=== PATIENT | male | born 1950 | race Caucasian/White ===

== ENCOUNTER 2016-12-12 19:55 | Emergency (ER) | payer OTHER ==
[2016-12-12 20:07] VITALS: BP 127/81; PULSE 65; TEMP 98.4; BMI 27.8
--- NOTE | 2016-12-12 20:34 | PDOC ---
History of Present Illness - General History Source: Patient Exam Limitations: No Limitations - History of Present Illness Initial Comments: 12/12/16 20:55 The patient is a 66 year old male, with a significant past medical history of cardiomegaly, COPD, esophageal varices, colon polyps, cirrhosis, who presents to the emergency s/p mechanical fall at approximately 11:00. The patient reports he was standing on a ladder doing some cabinet work in his kitchen. Patient reports he was standing half on the ladder and half on the counter doing some cabinet work when suddenly one of the cabinets fell onto the ladder, knocked down the ladder, and the patient fell approximately 4.5 feet onto the floor. The patient reports hitting the back of his head and sustaining a laceration from the cabinet. He denies any LOC, headache, dizziness, or nausea. He reports associated soreness in his neck, mid-lower back and right knee. Patient reports using a skin adhesive for the laceration. The patient denies any other trauma. The patient is on lasix and 81 mg of aspirin daily. The patient denies any chest pain, shortness of breath, diaphoresis, or palpitations. Allergies: Codeine Past Surgical History: Right arm fracture, arthroscopy of right knee Social History: ETOH abuse(currently on Methadone) Non smoker. <Jory Smith - Last Filed: 12/12/16 20:54> <Susan Cr - Last Filed: 12/13/16 01:10> - General Chief Complaint: Injury Stated Complaint: HEAD INJURY,LACERATION TO HEAD S/P FELL OFF LADDER Time Seen by Provider: 12/12/16 19:57 Past History <Jory Smith - Last Filed: 12/12/16 20:54> - Past Medical History Anemia: No Asthma: Yes Cardiac Disorders: Yes (ENLARGED HEART) CVA: No COPD: Yes CHF: No Dementia: No Diabetes: No GI Disorders: Yes (ESOPHAGEAL VARICES) Disorders: No HTN: No Hypercholesterolemia: No Liver Disease: Yes (H/O COLON POLYPS,ALCOHOLIC CIRRHOSIS) Seizures: No Thyroid Disease: No - Surgical History Abdominal Surgery: No Appendectomy: No Cardiac Surgery: No Cholecystectomy: No Lung Surgery: No Neurologic Surgery: No Orthopedic Surgery: Yes (FX RIGHT ARM,ARTHROSCOPY RIGHT KNEE) - Immunization History Immunization Up to Date: Yes - Psycho/Social/Smoking Cessation Hx Anxiety: No Suicidal Ideation: No Smoking History: Never smoked Have you smoked in the past 12 months: No Information on smoking cessation initiated: No Hx Alcohol Use: No Drug/Substance Use Hx: No Substance Use Type: Alcohol Hx Substance Use Treatment: Yes (3 YRS AGO, currently on Methadone) <Susan Cr - Last Filed: 12/13/16 01:10> - Past Medical History Allergies/Adverse Reactions: Allergies Allergy/AdvReac Type Severity Reaction Status Date / Time codeine [Codeine] Allergy Verified 12/12/16 19:58 Home Medications: Ambulatory Orders Methadone [Dolophine -] 5 mg PO TID 12/19/13 Furosemide [Lasix -] 20 mg PO DAILY 11/25/14 Aspirin [Aspirin EC] 81 mg PO DAILY #0 12/13/14 Albuterol Sulfate Inhaler - [Ventolin Hfa Inhaler -] 1 - 2 inh PO ASDIR PRN Multivitamin [Poly-Vitamin] 1 each PO DAILY 12/12/16 Review of Systems - Review of Systems Able to Perform ROS?: Yes Comments:: 12/12/16 20:55 CONSTITUTIONAL: Absent: fever, no chills, no fatigue EYES: Absent: visual changes ENT: Absent: ear pain, no sore throat CARDIOVASCULAR: Absent: chest pain, no palpitations RESPIRATORY: Absent: cough, no SOB GI: Absent: abdominal pain, no nausea, no vomiting, no constipation, no diarrhea GENITOURINARY: Absent: dysuria, no frequency, no hematuria MUSCULOSKELETAL: Present:+soreness in his neck, mid-lower back and right knee Absent: back pain, no arthralgia, no myalgia SKIN: Present: +laceration to the head Absent: rash NEURO: Absent: headache <SmithGiomilsy - Last Filed: 12/12/16 20:54> *Physical Exam - Vital Signs Last Vital Signs Temp Pulse Resp BP Pulse Ox 98.4 F 65 18 127/81 94 L 12/12/16 19:57 12/12/16 19:57 12/12/16 19:57 12/12/16 19:57 12/12/16 19:57 - Physical Exam Comments: 12/12/16 20:55 General: Patient is alert and in no acute distress. Speech is clear and appropriate. Head: 10 cm nonbleeding partial thickness laceration of the right parietal scalp. Nontender. HEENT: Pupils are equal round and reactive to light, extraocular movements are intact. The tympanic membranes are clear, no hemotympanum. No facial deformity/ tenderness, no septal hematoma. The oropharynx is clear. Neck: Mild tenderness of the midline cervical spine C4-C6. Full range of motion of neck. The trachea is midline, there is no stridor. Chest: Nontender, no ecchymosis or abrasions. Heart: S1-S2, regular rate and rhythm. No murmurs. Lungs: Clear to auscultation bilaterally. Symmetric chest rise. Abdomen: Soft/nontender/nondistended. Bowel sounds are normal. There is no abdominal or flank ecchymosis. Back/Pelvis: Mild right flank tenderness but no midline lower spinal tenderness There is no other midline spine tenderness or step-off. Pelvis is stable and nontender. Extremities: Mild tenderness of the left knee medially, but no edema, deformity , or ecchymosis. Full nonpainful ROM in the left knee. There is no other extremity deformity or joint swelling. No focal bony tenderness throughout. 2+ distal pulses throughout. Neuro: Alert and oriented x3. Cranial nerves II through XII are intact. 5 out of 5 motor strength x4 extremities. [id number] is intact. No pronator drift. Gait is stable. Skin: No abrasions/hematomas/lacerations. Psych: Affect is appropriate. <Smith,Giomilsy - Last Filed: 12/12/16 20:54> - Vital Signs Last Vital Signs Temp Pulse Resp BP Pulse Ox 98.4 F 65 18 127/81 94 L 12/12/16 19:57 12/12/16 19:57 12/12/16 19:57 12/12/16 19:57 12/12/16 19:57 <Susan Cr - Last Filed: 12/13/16 01:10> ED Treatment Course - ADDITIONAL ORDERS Additional order review: Laboratory Results 12/12/16 20:38 Urine Color Yellow Urine Appearance Clear Urine pH 6.5 Ur Specific Loa 1.020 Urine Protein Negative Urine Glucose (UA) Negative Urine Ketones Trace Urine Blood Negative Urine Nitrite Negative Urine Bilirubin Negative Urine Urobilinogen 0.2 e.u/dl Ur Leukocyte Esterase Negative <Jory Smith - Last Filed: 12/12/16 20:54> Progress Note - Progress Note Progress Note: Documentation has been prepared under my direction and personally reviewed by me in its entirety. I attest that this documented accurately reflects all work, treatment, procedures and medical decision making performed by me. <Susan Cr - Last Filed: 12/13/16 01:10> Medical Decision Making - Medical Decision Making As noted above, this 66-year-old man with history of hepatitis C, cirrhosis, esophageal varices presents after falling in his home much earlier today while working on cabinets. As described above, the patient fell approximately 4-1/2 feet, striking his head on a linoleum floor and having a cabinet fall on his head, sustaining a superficial laceration of the scalp. There was no loss of consciousness and patient has had no symptoms throughout the day suggestive of severe closed head injury. Patient's presenting symptoms were "soreness " of right knee/right shoulder. On exam, he had some mild tenderness of the lower portion of his neck, although the patient stated that this was not severe. Shoulder and knee exam revealed no evidence of edema or point tenderness. Patient was able to weight-bear and walk today without significant disability. Noncontrast head CT/cervical spine CT was performed: Interpretation by Dr. Tapia. Noncontrast head CT revealed no evidence of acute intracranial pathology or skull fracture. 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 No evidence of acute injury of the cervical spine. Patient was asked about previous neck injuries. Although he has not had previous direct trauma to the neck, he states that for approximately 10 years he chronically lifted very heavy weights and carried them on his upper back/ shoulders. He does not have significant chronic neck pain. Patient will be discharged with follow-up with his general medical doctor as well as his orthopedist (Dr. Munoz). Because he has contraindications to both NSAIDs (because of esophageal varices) as well as acetaminophen (because of his chronic hepatic issues), neither can be recommended for pain relief. Patient understands the rationale and agrees to the plan. If his pain is severe enough that he needs pain medication, he should follow-up with his doctors as above or, if pain is very severe, return to the ER <Susan Cr - Last Filed: 12/13/16 01:10> *DC/Admit/Observation/Transfer - Attestations Scribe Attestion: 12/12/16 20:55 Documentation prepared by Jory Smith, acting as medical front desk coordinator for Susan Cr MD. <Jory Smith - Last Filed: 12/12/16 20:54> <Susan Cr - Last Filed: 12/13/16 01:10> Diagnosis at time of Disposition: Shoulder strain Qualifiers: Encounter type: initial encounter Laterality: right Qualified Code(s): S46.911A - Strain of unspecified muscle, fascia and tendon at shoulder and upper arm level, right arm, initial encounter Strain of right knee Qualifiers: Encounter type: initial encounter Qualified Code(s): S86.911A - Strain of unspecified muscle(s) and tendon(s) at lower leg level, right leg, initial encounter Superficial laceration of scalp Qualifiers: Encounter type: initial encounter Qualified Code(s): S01.01XA - Laceration without foreign body of scalp, initial encounter Closed head injury Qualifiers: Encounter type: initial encounter Qualified Code(s): S09.90XA - Unspecified injury of head, initial encounter Cervical stress fracture Qualifiers: Encounter type: initial encounter Qualified Code(s): M48.42XA - Fatigue fracture of vertebra, cervical region, initial encounter for fracture - Discharge Dispostion Disposition: HOME Condition at time of disposition: Stable - Referrals Referrals: Gabriel Munoz MD [Staff Physician] - - Patient Instructions Printed Discharge Instructions: DI for Closed Head Injury Additional Instructions: keep head elevated tonight use soft collar as needed return to ER if headache/nausea/lightheadedness develop followup with your general doctor within one week see Dr Munoz if shoulder/knee pain persists
[2016-12-12 20:47] LABS: PH,URINE 6.5 (4.5-8); URINE APPEARANCE Clear; URINE BILIRUBIN Negative (NEGATIVE); URINE BLOOD Negative (NEGATIVE); URINE GLUCOSE (UA) Negative (NEGATIVE); URINE KETONE Trace (NEGATIVE); URINE LEUK ESTERASE Negative (NEGATIVE); URINE NITRITE Negative (NEGATIVE); URINE PROTEIN Negative (NEGATIVE); URINE UROBILINOGEN 0.2 E.U/dl (0.2-1.0)
[2016-12-12 20:50] LABS: URINE COLOR YELLOW
== END 2016-12-12 22:14 | disposition home or self-care (01) ==
LOC: FER 19:55
DX: S46.911A Strain of unspecified muscle, fascia and tendon at shoulder and upper arm level, right arm, initial encounter (principal); S86.911A Strain of unspecified muscle(s) and tendon(s) at lower leg level, right leg, initial encounter; S01.01XA Laceration without foreign body of scalp, initial encounter; S09.90XA Unspecified injury of head, initial encounter; M48.42XA Fatigue fracture of vertebra, cervical region, initial encounter for fracture; W11.XXXA Fall on and from ladder, initial encounter; Y93.89 Activity, other specified; Y92.000 Kitchen of unspecified non-institutional (private) residence as the place of occurrence of the external cause; I51.7 Cardiomegaly; J45.909 Unspecified asthma, uncomplicated; J44.9 Chronic obstructive pulmonary disease, unspecified; I85.00 Esophageal varices without bleeding
CPT/HCPCS: 70450-TC; 72125-TC; 81003; 99283-25

== ENCOUNTER 2018-05-16 10:19 | Day surgery (SDC) | payer OTHER ==
[2018-05-14 17:15] VITALS: BMI 28.8
[2018-05-16] MEDS ORDERED: BUPIVACAINE HCL/PF 2.5 MG/ML - 30 ML VIAL IJ ONE (11:55)
[2018-05-16] MEDS ORDERED: LIDOCAINE HCL/PF 2% SDV 5ML VIAL ONE (12:31)
[2018-05-16] MEDS ORDERED: PROPOFOL 20 ML ONE (12:31)
[2018-05-16] MEDS ORDERED: MIDAZOLAM HCL 2 MG/2 ML SINGLE DOSE VIAL ONE (12:31)
[2018-05-16] MEDS ORDERED: ONDANSETRON 4 MG/2 ML VIAL IVPUSH PRN (12:37)
[2018-05-16] MEDS ORDERED: oxyCODONE HCL 5 MG TABLET PO PRN (12:37)
[2018-05-16] MEDS ORDERED: ceFAZolin SODIUM 1 GM VIAL ONE (12:43)
[2018-05-16] MEDS ORDERED: LACTATED RINGERS SOLUTION 1,000 ML IV SCH (12:45)
[2018-05-16] MEDS ORDERED: BUPIVACAINE HCL/PF 0.25% (2.5MG/ML) 10 ML VIAL IJ ONE (12:59)
--- NOTE | 2018-05-16 14:20 | OP ---
DATE OF OPERATION: 05/16/2018 SURGEON: Gabriel Owens MD [employer] MANAGER: JACQUE Goldstein PREOPERATIVE DIAGNOSES: 1. Left knee medial and lateral meniscal tear. 2. Left knee cartilage tear. 3. Left knee synovitis. POSTOPERATIVE DIAGNOSES: 1. Left knee medial and lateral meniscal tear. 2. Left knee cartilage tear. 3. Left knee synovitis. PROCEDURE: 1. Left knee arthroscopy with partial meniscectomy medial and lateral meniscus, CPT code 58603. 2. Left knee arthroscopy with chondroplasty and abrasion-plasty, CPT code 2979. 2. left knee arthroscopy with synovectomy including removal of medial plica, CPT code 2975. FINDINGS: 1. Medial meniscus body and posterior horn tear. 2. Lateral meniscus body tear. 3. Synovitis patellofemoral medial and lateral notch area. 4. ACL and PCL intact. 5. Diffuse grade 2 cartilage medial and femoral condyle with a small area of grade 3 changes anterior medial femoral condyle. 6. Central grade 1-2 cartilage injury lateral femoral condyle tibial plateau. 7. Central grade 2-3 cartilage in the patella with 1-2 changes patellofemoral trochlea and superior patella grade 4 changes. PROCEDURE: Informed consent was obtained. The patient came to the operating room, where the lower extremity was prepped and draped in a sterile fashion. A tourniquet was placed on the upper thigh, but not inflated. Using standard arthroscopic technique, a lateral incision and portal was made to allow for introduction of the camera into the suprapatellar bursa. This was then taken to the medial joint line, where under direct visualization, a medial incision and portal was made. Excessive synovium noted in the medial, lateral and patellofemoral and notch area was removed by an upbiter, shaver and Bovie cautery. This was found to bring in inflammatory tissue into the joint surface, a source of pain and dysfunction. Probing of the medial and lateral meniscus found tears, as described in the findings. These were removed with the upbiter and shaver and taken back to a stable rim. Grade 2 to 3 degenerative changes were treated with a chondroplasty, removing all flaking surfaces with low-setting Bovie along the periphery to prevent further flaking. Grade 4 changes, as noted, were treated with an abrasion-plasty, creating a bleeding surface at the bone/cartilage interface. Aggressive debridement with shaver/willy created bleeding surface. Micro fracture also done when indicated in findings. All areas of the knee were once again reexamined. The knee was then drained, and a single suture was placed in all portals. A sterile dressing was placed, and the patient was transferred to the recovery room without complication. The PA listed above was present and assisted at surgery. Their presence was absolutely medically necessary for the completion of the procedure. They helped hold the arthroscopy, pass instruments (and implants when indicated) and the procedure could not have been completed without their assistance. GABRIEL OWENS M.D. [id number]
[2018-05-16 14:33] VITALS: PULSE 71; TEMP 98
[2018-05-16 14:34] VITALS: BP 131/74
--- NOTE | 2018-05-20 13:37 | PATH ---
Surgical Pathology Report Patient Name: MARY WILLIAM Med. Rec. #: [id number] /Age/Gender: 1950 (Age: 67) / M Account: [id number] Location: [facility] AMBULATORY Taken: 05/16/2018 Received: 05/16/2018 Reported: 05/20/2018 Physicians: Gabriel Munoz M.D. Specimen(s) Received LEFT KNEE SHAVINGS Clinical History Left knee internal derangement Final Diagnosis KNEE, LEFT, ARTHROSCOPIC SHAVING: FIBROCARTILAGE WITH MYXOID DEGENERATIVE CHANGES. Electronically Signed Prashanth Recio M.D. Gross Description Received in formalin labeled "left knee shavings," is a 0.1 x 0.1 x 0.1 cm aggregate of pina soft tissue fragments. The specimen is submitted in toto in one cassette. 05/19/201805/19/2018
== END 2018-05-16 15:20 | disposition home or self-care (01) ==
LOC: FASU 10:19
PROVIDERS: ATTEND Orthopaedic Surgery
PROC: 0SBD4ZZ Excision of Left Knee Joint, Percutaneous Endoscopic Approach (ICD-10-PCS; 2018-05-16)
PROC: 0SBD4ZZ Excision of Left Knee Joint, Percutaneous Endoscopic Approach (ICD-10-PCS; 2018-05-16)
PROC: 0SBD4ZZ Excision of Left Knee Joint, Percutaneous Endoscopic Approach (ICD-10-PCS; principal; 2018-05-16 11:30)
DX: S83.242A Other tear of medial meniscus, current injury, left knee, initial encounter (principal); S83.282A Other tear of lateral meniscus, current injury, left knee, initial encounter; S83.8X2A Sprain of other specified parts of left knee, initial encounter; M65.862 Other synovitis and tenosynovitis, left lower leg; X58.XXXA Exposure to other specified factors, initial encounter; Y93.9 Activity, unspecified; Y92.9 Unspecified place or not applicable
CPT/HCPCS: 88304-TC; 94760

== ENCOUNTER 2018-08-23 17:33 | Inpatient (IN) | payer OTHER ==
--- NOTE | 2018-08-23 18:51 | PDOC ---
Attending Attestation - Resident Resident Name: Shivani Padron - ED Attending Attestation I have performed the following: I have examined & evaluated the patient, The case was reviewed & discussed with the resident, I agree w/resident's findings & plan, Exceptions are as noted - HPI HPI: 08/23/18 18:45 68myo male h/o copd,( asbestos exposure, never tobacco user) hep c ( treated viral load undetectable), h/o esophageal varices, here c/o sob. pt states he had a fall slipped on ice 2 weeks ago. was seen at another hospital and evaluated with cxr which was reportedly negative. then 3 days ago started having nausea, with vomiting, anorexia. and sob. pt states sob worse wtih exertion. no cough, no abd pain. no weightloss. no known ho cancer other than localized melanoma which was resected from nose many years ago. no h/o travel. no ho pe or dvt, no recent calf pain or leg swelling. no other complaints. states after his fall initially he did have clicking noise when breathing on left chest. now denies pleuritic pain. - Physicial Exam PE: 08/23/18 18:48 awake alert mild labored breathing on room air, sat 84%, lungs with crackles at bilat bases, heart rrr no mrg abd soft nt nd. ext wwp no edema. no calf tenderness. skin warm and dry. alert oriented x 3. - Medical Decision Making 08/23/18 18:48 68 yo male h/o asbestos exposure, copd, interstitial lung disease, ( no home Oxygen) and treated hep c, recent benign trauma with sob hypoxia. crackles on exam. differential includes chf, pna, ptx, rib fracture, effusion, lung ca, pe, copd. plan focused lung TTE us performed at bedside. patient placed on oxygen, sats improved to 95 % on 5 L. focused ED TTE, mild decr contatractility, no pericardial effusion. no rv enlargment or dilation, impression: mild decr contractility otherwise unremarkable. bilat lungs scanned with phased array and linear transducer, bilat lung sliding noted. anterior lung ngo with scattered b lines, no pleural effusion noted. impression: interstitial lung syndrome, ( edema. vs pna, no ptx, no pleural effusion. plan cxr, david cta r/o pe, labs and admission. pt pcp dr perales. 08/23/18 19:00 signed out to oncoming physician labs pending. cxr with bilat infiltrates. c/w pneumonia. abx ceftriaxone and azithromycin ordered. ct pending will require admission.
[2018-08-23 19:33] LABS: HEMOGLOBIN 12.6 GM/dl (11.7-16.9); MCH 29.9 pg (25.7-33.7); MCHC 33.1 g/dl (32.0-35.9); MEAN CELL VOLUME 90.4 fl (80-96); MEAN PLT VOLUME 7.8 fl (7.5-11.1); PLATELET COUNT 140 K/MM3 (134-434); RDW 11.9 % (11.9-15.9); WHITE BLOOD COUNT 10.8 K/mm3 (4.0-10.8)
--- NOTE | 2018-08-23 19:36 | PDOC ---
History of Present Illness - General Chief Complaint: Shortness of Breath Stated Complaint: SOB Time Seen by Provider: 08/23/18 18:22 History Source: Patient Exam Limitations: No Limitations - History of Present Illness Initial Comments: 08/23/18 19:28 Pt is a 68yo M with PMH of HepC (treated), COPD, Melanoma (excised), Phlebitis, presenting to ED for increasing SOB for the past 3 days. Pt states he feels short of breath with exertion. He stated that the night before the SOB began he vomited twice but since then is not having any GI symptoms. He denies cough, fever, chills, chest pain, pain with inspiration, recent surgeries, recent travel, hemoptysis, swelling or pain in the calves, syncope, palpitations, abdominal pain, n/v/d, back pain, neck pain. Endorses headache. He states that about 2 weeks ago he fell on ice and injured the L side of his chest, the xrays however were normal. PMD: Nagasi PMH: see hpi PSH: see hpi Meds: HCTZ Allergies: nkda Social: no tobacco use. Past History - Past Medical History Allergies/Adverse Reactions: Allergies Allergy/AdvReac Type Severity Reaction Status Date / Time No Known Allergies Allergy Verified 05/16/18 10:49 Home Medications: Ambulatory Orders Furosemide [Lasix -] 20 mg PO DAILY 11/25/14 Aspirin [Aspirin EC] 81 mg PO DAILY #0 12/13/14 Albuterol Sulfate Inhaler - [Ventolin Hfa Inhaler -] 1 - 2 inh PO ASDIR PRN Ascorbic Acid [Vitamin C] 500 mg PO DAILY 05/14/18 Turmeric 400 mg PO DAILY 05/14/18 Vitamin B Complex 1 each PO DAILY 05/14/18 Vitamin E 400 unit PO DAILY 05/14/18 Anemia: No Asthma: Yes Cancer: Yes (skin CA-nose) Cardiac Disorders: No CVA: No COPD: Yes CHF: No Dementia: No Diabetes: No GI Disorders: Yes (ESOPHAGEAL VARICES) Disorders: No HTN: No Hypercholesterolemia: No Liver Disease: Yes (H/O COLON POLYPS,ALCOHOLIC CIRRHOSIS) Seizures: No Thyroid Disease: No - Surgical History Abdominal Surgery: No Appendectomy: No Cardiac Surgery: No Cholecystectomy: No Lung Surgery: No Neurologic Surgery: No Orthopedic Surgery: Yes (FX RIGHT ARM,ARTHROSCOPY RIGHT KNEE) - Immunization History Immunization Up to Date: Yes - Suicide/Smoking/Psychosocial Hx Smoking History: Never smoked Have you smoked in the past 12 months: No Information on smoking cessation initiated: No Hx Alcohol Use: Yes Drug/Substance Use Hx: Yes Substance Use Type: None Hx Substance Use Treatment: Yes (HX OF ALCOHOL ABUSE) Review of Systems - Review of Systems Constitutional: Yes: Weakness. No: Chills, Fever HEENTM: No: Symptoms Reported Respiratory: Yes: Shortness of Breath, SOB with Exertion. No: SOB at Rest, Productive cough, Hemoptysis Cardiac (ROS): No: Chest Pain, Edema, Lightheadedness, Palpitations, Syncope, Chest Tightness ABD/GI: No: Constipated, Diarrhea, Nausea, Vomiting, Abdominal cramping : No: Burning, Dysuria, Flank Pain Musculoskeletal: No: Back Pain, Joint Pain, Neck Pain Integumentary: No: Symptoms Reported Neurological: Yes: Headache. No: Numbness, Tingling, Tremors, Weakness *Physical Exam - Vital Signs Last Vital Signs Temp Pulse Resp BP Pulse Ox 98.1 F 78 20 127/64 95 08/23/18 17:34 08/23/18 17:34 08/23/18 17:45 08/23/18 17:34 08/23/18 17:45 - Physical Exam General Appearance: Yes: Nourished, Appropriately Dressed, Moderate Distress HEENT: positive: EOMI, STACEY. negative: Pale Conjunctivae, Scleral Icterus (R), Scleral Icterus (L) Neck: positive: Trachea midline, Supple. negative: Lymphadenopathy (R), Lymphadenopathy (L) Respiratory/Chest: positive: Crackles (R>L lower lung field). negative: Chest Tender, Normal Breath Sounds (coarse breath sounds), Accessory Muscle Use, Labored Respiration Cardiovascular: positive: Regular Rhythm, Regular Rate, S1, S2. negative: Edema , JVD, Murmur Vascular Pulses: Carotid (R): 2+, Carotid (L): 2+, Dorsalis-Pedis (R): 2+, Doralis-Pedis (L): 2+ Gastrointestinal/Abdominal: positive: Normal Bowel Sounds, Soft. negative: Distended, Guarding, Rebound, Tenderness Musculoskeletal: negative: CVA Tenderness Extremity: positive: Normal Capillary Refill, Pelvis Stable. negative: Pedal Edema, Swelling, Calf Tenderness Integumentary: positive: Normal Color, Dry, Warm Neurologic: positive: graduate nurse II-XII NML intact, Fully Oriented, Alert, Normal Mood/ Affect, Normal Response, Motor Strength 5/5 Moderate Sedation - Procedure Monitoring Vital Signs: Procedure Monitoring Vital Signs Temperature 98.1 F 08/23/18 17:34 Pulse Rate 78 08/23/18 17:34 Respiratory Rate 20 08/23/18 17:45 Blood Pressure 127/64 08/23/18 17:34 O2 Sat by Pulse Oximetry (%) 95 08/23/18 17:45 ED Treatment Course - LABORATORY CBC & Chemistry Diagram: 08/23/18 19:10 08/23/18 19:10 - ADDITIONAL ORDERS Additional order review: Laboratory Results 08/23/18 19:10 Anticoagulation Therapy No Result Required. O2 Delivery Device No Result Required. Oxygen Flow Rate No Result Required. Vent Mode No Result Required. Vent Rate No Result Required. Mechanical Rate No Result Required. Pressure Support Vent No Result Required. - RADIOLOGY Radiology Studies Ordered: Category Date Time Status CHEST CTA [CT] Stat CT Scan 08/23/18 18:12 Ordered CHEST PA & LAT [RAD] Stat Radiology 08/23/18 18:11 Taken Medical Decision Making - Medical Decision Making 08/23/18 19:33 Pt is a 68yo M with PMH of HepC (treated), COPD, Melanoma (excised), Phlebitis, presenting to ED for increasing SOB for the past 3 days. Pt states he feels short of breath with exertion. He stated that the night before the SOB began he vomited twice but since then is not having any GI symptoms. He denies cough, fever, chills, chest pain, pain with inspiration, recent surgeries, recent travel, hemoptysis, swelling or pain in the calves, syncope, palpitations, abdominal pain, n/v/d, back pain, neck pain. Endorses headache. He states that about 2 weeks ago he fell on ice and injured the L side of his chest, the xrays however were normal. Vitals: saturating 80%RA, increased to low 90s on 5L NC, normotensive, normocardic, afebrile PE: crackles/coarse lung sounds at base, normal heart sounds, no edema, no rashes, no chest wall tenderness Ddx: PE, PNA, CHF, COPD, PTX, Effusion, vascular abnormality. Atelectasis -cbc, cmp, trop, bnp, coags, ua, ABG -ekg, cxr, CTA, POCUS POCUS: no pericardial effusion or lung effusion, B-lines. Normal cardiac function Pt was a difficult stick. Line just placed. CXR shows diffuse infiltrates or congestion in R lung field. Pt signed out to night team *DC/Admit/Observation/Transfer Diagnosis at time of Disposition: SOB (shortness of breath), Hypoxia - Referrals Referrals: Sana Hurd MD [Primary Care Provider] - - Patient Instructions - Post Discharge Activity
[2018-08-23 19:40] LABS: ALBUMIN 3.1 g/dl (3.4-5.0); ALK PHOS 75 U/L (45-117); ANION GAP 8 MMOL/L (8-16); BILIRUBIN,TOTAL 1.1 mg/dl (0.2-1); BLOOD UREA NITROGEN 12 mg/dl (7-18); CALCIUM 7.8 mg/dl (8.5-10); CHLORIDE 93 mmol/L (98-107); CO2 30 mmol/L (21-32); CREATININE 0.7 mg/dl (0.55-1.3); GLUCOSE,RANDOM 103 mg/dl (74-106); MAGNESIUM 1.7 mg/dL (1.8-2.4); SGOT/AST 33 U/L (15-37); SGPT/ALT 27 U/L (13-61); SODIUM 131 mmol/L (136-145); TOT PROT 6.4 g/dl (6.4-8.2)
--- NOTE | 2018-08-23 19:44 | PDOC ---
*Physical Exam - Vital Signs Last Vital Signs Temp Pulse Resp BP Pulse Ox 98.1 F 71 20 127/64 95 08/23/18 17:34 08/23/18 19:30 08/23/18 17:45 08/23/18 17:34 08/23/18 19:38 ED Treatment Course - LABORATORY CBC & Chemistry Diagram: 08/23/18 19:10 08/23/18 19:10 - ADDITIONAL ORDERS Additional order review: Laboratory Results 08/23/18 19:10 Anticoagulation Therapy No Result Required. O2 Delivery Device No Result Required. Oxygen Flow Rate No Result Required. Vent Mode No Result Required. Vent Rate No Result Required. Mechanical Rate No Result Required. Pressure Support Vent No Result Required. 08/23/18 19:10 RBC 4.20 MCV 90.4 MCHC 33.1 RDW 11.9 MPV 7.8 Neutrophils % No Result Required. Lymphocytes % No Result Required. Progress Note - Progress Note Progress Note: Care of this patient was transferred to [place] from Dr. Cannon at 1900 hrs. Patient is a 68-year-old male who comes in with difficulty breathing and oxygen sat is mid-80s. On chest x-ray patient has a large right-sided infiltrate and a smaller left- sided infiltrate Patient has a workup pending including labs, CT angios of the chest, His EKG shows normal sinus rhythm at a rate of [address]-T wave inversions laterally, otherwise no acute changes Once patient's workup is complete he will be admitted to an inpatient bed Patient's CT angios was negative for pulmonary embolism Discussed admission with , Patient will admitted to an inpatient bed telemetry . Signout given to the admitting hospitalist, who accepts the patient. Discussed plan with the patient family at bedside, Patient and family aware of the plan and agree. Patient is clinically unchanged and stable. *DC/Admit/Observation/Transfer Diagnosis at time of Disposition: SOB (shortness of breath), Hypoxia Bilateral pneumonia Qualifiers: Pneumonia type: due to unspecified organism Lung location: lower lobe of lung Qualified Code(s): J18.1 - Lobar pneumonia, unspecified organism - Discharge Dispostion Decision to Admit order: Yes - Referrals Referrals: Sana Hurd MD [Primary Care Provider] - - Patient Instructions - Post Discharge Activity
[2018-08-23 19:45] LABS: POTASSIUM 2.9 mmol/L (3.5-5.1)
[2018-08-23] MEDS ORDERED: POTASSIUM CHLORIDE TABS 20 MEQ TABLET.ER (FP) PO ONE ×2 (19:55)
[2018-08-23 20:00] LABS: INR 1.47 (0.82-1.09); PROTHROMBIN TIME (PATIENT) 16.3 SEC (10.2-13.0)
[2018-08-23 20:15] LABS: URINE APPEARANCE Clear; URINE BILIRUBIN Negative (NEGATIVE); URINE COLOR Yellow; URINE GLUCOSE (UA) Negative (NEGATIVE); URINE KETONE Negative (NEGATIVE); URINE LEUK ESTERASE Negative (NEGATIVE); URINE NITRITE Negative (NEGATIVE); URINE PROTEIN Negative (NEGATIVE)
[2018-08-23 20:37] LABS: URINE RBC 0-2 /hpf (0-3); URINE WBC 0-2 (0-2)
[2018-08-23 20:37] LABS: ARTERIAL BLD GAS O2 SATURATION 92.8 % (90-98.9); ARTERIAL BLOOD GAS BASE EXCESS 6.9 meq/l (-2-2); ARTERIAL BLOOD GAS PCO2 48.7 mmHg (35-45); ARTERIAL BLOOD GAS PO2 68.5 mmHg (80-100); ARTERIAL BLOOD GAS pH 7.44 (7.35-7.45); CARBOXYHEMOGLOBIN 1.3 gm% (0.5-2.0); PLATELET ESTIMATE ADEQUATE
[2018-08-23] MEDS ORDERED: CEFTRIAXONE 1,000 MG in DEXTROSE 5%-WATER - 50 ML IVPB ONE (20:39)
[2018-08-23] MEDS ORDERED: AZITHROMYCIN IVPB 500 MG in DEXTROSE 5%-WATER - 250 ML IVPB ONE (20:40)
[2018-08-23] MEDS ORDERED: cefTRIAXone SODIUM 1 GM VIAL ONE (20:54)
[2018-08-23] MEDS ORDERED: AZITHROMYCIN 500 MG VIAL IVPB ONE (20:54)
[2018-08-23 21:04] LABS: N-TERMINAL BNP 2766.8 pg/ml (5-125)
[2018-08-23] MEDS ORDERED: ALBUTEROL SO4 0.083% IH SOL 2.5 MG/3 ML VIAL.NEB. NEB PRN (22:03)
--- NOTE | 2018-08-23 22:04 | HP ---
CHIEF COMPLAINT: shortness of breath PCP: Patricia HISTORY OF PRESENT ILLNESS: 68yo M with PMH of HepC (treated), COPD, Melanoma (excised), Phlebitis, c/o shortness of breath since sat. Denied any cough or chest pain. No recent travels. No animal exposures. 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 Heterosexual, no recent infections that he can recall. Not exposed to anyone sick recently. 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 use was 15 years ago Family History: mother with colon cancer Allergies No Known Allergies Allergy (Verified 05/16/18 10:49) HOME MEDICATIONS: Home Medications Medication Instructions Recorded Furosemide [Lasix -] 20 mg PO DAILY 11/25/14 Aspirin [Aspirin EC] 81 mg PO DAILY #0 12/13/14 Albuterol Sulfate Inhaler - 1 - 2 inh PO ASDIR PRN 12/12/16 [Ventolin Hfa Inhaler -] Ascorbic Acid [Vitamin C] 500 mg PO DAILY 05/14/18 Turmeric 400 mg PO DAILY 05/14/18 Vitamin B Complex 1 each PO DAILY 05/14/18 Vitamin E 400 unit PO DAILY 05/14/18 REVIEW OF SYSTEMS CONSTITUTIONAL: Absent: fever, chills, diaphoresis, generalized weakness, malaise, loss of appetite, weight change HEENT: Absent: rhinorrhea, nasal congestion, throat pain, throat swelling, difficulty swallowing, mouth swelling, ear pain, eye pain, visual changes CARDIOVASCULAR: Absent: chest pain, syncope, palpitations, irregular heart rate, lightheadedness , peripheral edema RESPIRATORY: Absent: cough,, orthopnea, wheezing, stridor, hemoptysis present- shortness of breath, dyspnea with exertion GASTROINTESTINAL: Absent: abdominal pain, abdominal distension, nausea, vomiting, diarrhea, constipation, melena, hematochezia GENITOURINARY: Absent: dysuria, frequency, urgency, hesitancy, hematuria, flank pain, genital pain MUSCULOSKELETAL: Absent: myalgia, arthralgia, joint swelling, back pain, neck pain SKIN: Absent: rash, itching, pallor HEMATOLOGIC/IMMUNOLOGIC: Absent: easy bleeding, easy bruising, lymphadenopathy, frequent infections ENDOCRINE: Absent: unexplained weight gain, unexplained weight loss, heat intolerance, cold intolerance NEUROLOGIC: Absent: headache, focal weakness or paresthesias, dizziness, unsteady gait, seizure, mental status changes, bladder or bowel incontinence PSYCHIATRIC: Absent: anxiety, depression, suicidal or homicidal ideation, hallucinations. PHYSICAL EXAMINATION Vital Signs - 24 hr 08/23/18 08/23/18 08/23/18 17:34 17:45 19:30 Temperature 98.1 F Pulse Rate 72 71 Respiratory 24 H 20 Rate Blood Pressure 127/64 O2 Sat by Pulse 94 L 95 94 L Oximetry (%) 08/23/18 08/23/18 19:38 21:22 Temperature Pulse Rate 65 Respiratory Rate Blood Pressure O2 Sat by Pulse 95 95 Oximetry (%) GENERAL: Awake, alert, and fully oriented, in no acute distress. HEAD: Normal with no signs of trauma. EYES: Pupils equal, round and reactive to light, extraocular movements intact, sclera anicteric, conjunctiva clear. No lid lag. EARS, NOSE, THROAT: Ears normal, nares patent, oropharynx clear without exudates. Moist mucous membranes. NECK: Normal range of motion, supple without lymphadenopathy, JVD, or masses. LUNGS: b/l crackles appreciated, speaks in full sentences HEART: Regular rate and rhythm, normal S1 and S2 without murmur, rub or gallop. ABDOMEN: Soft, nontender, not distended, normoactive bowel sounds, no guarding, no rebound, no masses. No hepatomegaly or splenomegaly. MUSCULOSKELETAL: Normal range of motion at all joints. No bony deformities or tenderness. No CVA tenderness. UPPER EXTREMITIES: 2+ pulses, warm, well-perfused. No cyanosis. No clubbing. No peripheral edema. LOWER EXTREMITIES: 2+ pulses, warm, well-perfused. No c residential tenderness. No peripheral edema. NEUROLOGICAL: Cranial nerves II-XII intact. Normal speech. Normal gait. PSYCHIATRIC: Cooperative. Good eye contact. Appropriate mood and affect. SKIN: tattoos present, no rashes Laboratory Results - last 24 hr 08/23/18 08/23/18 08/23/18 19:10 19:10 19:10 WBC 10.8 RBC 4.20 Hgb 12.6 Hct 38.0 MCV 90.4 MCH 29.9 MCHC 33.1 RDW 11.9 Plt Count 140 MPV 7.8 Absolute Neuts (auto) 10.2 Neutrophils % No Result Required. Neutrophils % (Manual) 94.0 H* Band Neutrophils % 4.0 Lymphocytes % No Result Required. Lymphocytes % (Manual) 2.0 L Platelet Estimate Adequate PT with INR 16.3 H INR 1.47 H PTT (Actin FS) 26.6 Anticoagulation Therapy Puncture Site ABG pH ABG pCO2 at Pt Temp ABG pO2 at Pt Temp ABG HCO3 ABG O2 Sat (Measured) ABG O2 Content ABG Base Excess Anatoliy Test Carboxyhemoglobin Methemoglobin O2 Delivery Device Oxygen Flow Rate Vent Mode Vent Rate Mechanical Rate Pressure Support Vent Sodium Potassium Chloride Carbon Dioxide Anion Gap BUN Creatinine Creat Clearance w eGFR Random Glucose Lactic Acid Calcium Magnesium Total Bilirubin AST ALT Alkaline Phosphatase Troponin I B-Natriuretic Peptide Total Protein Albumin Urine Color Urine Appearance Urine pH Ur Specific [place] Urine Protein Urine Glucose (UA) Urine Ketones Urine Blood Urine Nitrite Urine Bilirubin Urine Urobilinogen Ur Leukocyte Esterase Urine RBC Urine WBC 08/23/18 08/23/18 08/23/18 19:10 19:10 19:10 WBC RBC Hgb Hct MCV MCH MCHC RDW Plt Count MPV Absolute Neuts (auto) Neutrophils % Neutrophils % (Manual) Band Neutrophils % Lymphocytes % Lymphocytes % (Manual) Platelet Estimate PT with INR INR PTT (Actin FS) Anticoagulation Therapy No Result Required. Puncture Site No Result Required. ABG pH 7.44 ABG pCO2 at Pt Temp 48.7 H ABG pO2 at Pt Temp 68.5 L ABG HCO3 32.5 H ABG O2 Sat (Measured) 92.8 ABG O2 Content 26.3 H ABG Base Excess 6.9 H Anatoliy Test No Result Required. Carboxyhemoglobin 1.3 Methemoglobin 1.0 O2 Delivery Device No Result Required. Oxygen Flow Rate No Result Required. Vent Mode No Result Required. Vent Rate No Result Required. Mechanical Rate No Result Required. Pressure Support Vent No Result Required. Sodium 131 L Potassium 2.9 L* Chloride 93 L Carbon Dioxide 30 Anion Gap 8 BUN 12 Creatinine 0.7 Creat Clearance w eGFR > 60 Random Glucose 103 Lactic Acid Calcium 7.8 L Magnesium 1.7 L Total Bilirubin 1.1 H AST 33 ALT 27 Alkaline Phosphatase 75 Troponin I < 0.03 B-Natriuretic Peptide 2766.8 H Total Protein 6.4 Albumin 3.1 L Urine Color Urine Appearance Urine pH Ur Specific [place] Urine Protein Urine Glucose (UA) Urine Ketones Urine Blood Urine Nitrite Urine Bilirubin Urine Urobilinogen Ur Leukocyte Esterase Urine RBC Urine WBC 08/23/18 08/23/18 19:10 20:00 WBC RBC Hgb Hct MCV MCH MCHC RDW Plt Count MPV Absolute Neuts (auto) Neutrophils % Neutrophils % (Manual) Band Neutrophils % Lymphocytes % Lymphocytes % (Manual) Platelet Estimate PT with INR INR PTT (Actin FS) Anticoagulation Therapy Puncture Site ABG pH ABG pCO2 at Pt Temp ABG pO2 at Pt Temp ABG HCO3 ABG O2 Sat (Measured) ABG O2 Content ABG Base Excess Anatoliy Test Carboxyhemoglobin Methemoglobin O2 Delivery Device Oxygen Flow Rate Vent Mode Vent Rate Mechanical Rate Pressure Support Vent Sodium Potassium Chloride Carbon Dioxide Anion Gap BUN Creatinine Creat Clearance w eGFR Random Glucose Lactic Acid 1.3 Calcium Magnesium Total Bilirubin AST ALT Alkaline Phosphatase Troponin I B-Natriuretic Peptide Total Protein Albumin Urine Color Yellow Urine Appearance Clear Urine pH 7.0 Ur Specific [place] 1.010 Urine Protein Negative Urine Glucose (UA) Negative Urine Ketones Negative Urine Blood Trace-intact H Urine Nitrite Negative Urine Bilirubin Negative Urine Urobilinogen 1.0 Ur Leukocyte Esterase Negative Urine RBC 0-2 Urine WBC 0-2 CTA reviewed- b/l glass glass changes ekg showed prolonged qtc ASSESSMENT/PLAN: Atypical pneumonia- b/l ground glass changes on lung imaging, environmental exposure from work? Should r/o HIV. r/o mycoplasma, chlamydia, legionella pna. Hypoxemic respiratory failure requiring supplemental o2. -admit to telemetry -ceftriaxone 1g iv q24hrs -doxycycline 100mg iv q12hrs - long qtc -sputum culture -blood cultures -legionella urine ag -mycoplasma ag -chlamydia ag -PJP stputum dfa -HIV serology -pulm consult - Dr. Garcia- Bronchoscopy? -oxygen via venturi mask -monitor 02 sat -bed rest #COPD -albuterol neb prn #DVT ppx -heparin sc Visit type - Emergency Visit Emergency Visit: Yes ED Registration Date: 08/23/18 Care time: The patient presented to the Emergency Department on the above date and was hospitalized for further evaluation of their emergent condition. - New Patient This patient is new to me today: Yes Date on this admission: 08/23/18 - Critical Care Critical Care patient: No
[2018-08-23] MEDS: HEPARIN NA (PORCINE) 5,000 UNITS/ML 1ML VIAL SQ SCH (23:21)
[2018-08-23 23:51] VITALS: BMI 28.4
--- NOTE | 2018-08-24 08:42 | PN ---
Progress Note (short form) - Note Progress Note: This is a 68yo M with PMH of HepC (treated), COPD, Melanoma (excised), Phlebitis , c/o shortness of breath since sat. Denied any cough or chest pain. No recent travels. No animal exposures. 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 Admitted with acute hypoxemic respiratory failure, poss due to pneumonia, official chest X'ray and CTA report pending. ABG reviewed ,on VM o2 sat 93-94%, as per pulmonary Dr. Garcia will transfer to [facility] for further management. Visit type - Emergency Visit Emergency Visit: Yes ED Registration Date: 08/23/18 Care time: The patient presented to the Emergency Department on the above date and was hospitalized for further evaluation of their emergent condition. - New Patient This patient is new to me today: Yes Date on this admission: 08/24/18 - Critical Care Critical Care patient: No
[2018-08-24] MEDS: HEPARIN NA (PORCINE) 5,000 UNITS/ML 1ML VIAL SQ SCH ×2 (09:11→22:02)
[2018-08-24 09:24] LABS: BASO % 0.2 % (0-2.0); EOS % 0.8 % (0-4.5); HEMATOCRIT 36.6 % (35.4-49); HEMOGLOBIN 12.3 GM/dl (11.7-16.9); LYMPH % 7.1 % (8-40); MCH 30.6 pg (25.7-33.7); MCHC 33.6 g/dl (32.0-35.9); MEAN CELL VOLUME 91.2 fl (80-96); MEAN PLT VOLUME 8.5 fl (7.5-11.1); MONO % 2.8 % (3.8-10.2); NEUT % 89.1 % (42.8-82.8); PLATELET COUNT 121 K/MM3 (134-434); RBC 4.02 M/mm3 (4.00-5.60); RDW 12.3 % (11.9-15.9); WHITE BLOOD COUNT 7.6 K/mm3 (4.0-10.8)
--- NOTE | 2018-08-24 09:47 | PN ---
Progress Note (short form) - Note Progress Note: PULMONARY CONSULTATION DICTATED 08/24/18 IMP ACUTE HYPOXEMIC RESPIRATORY FAILURE EXTENSIVE BILATERAL INFILTRATES LIKELY INFECTIOUS,? VIRAL,?INFLAMMATORY H/O ASBESTOS EXPOSURE PLAN IV ABX STEROIDS INHALED BRONCHODILATORS TAMIFLU SUPPLEMENTAL O2 NIPPV IF PT DEVELOPES INCREASED RESPIRATORY DISTRESS CULTURES ' ECHO F/U CHEST X-RAYS INFLUENZA SCREEN F/U ABGS DR CALDERA Problem List - Problems (1) Acute hypoxemic respiratory failure Code(s): J96.01 - ACUTE RESPIRATORY FAILURE WITH HYPOXIA (2) Bilateral pneumonia Code(s): J18.9 - PNEUMONIA, UNSPECIFIED ORGANISM Qualifiers: Pneumonia type: due to unspecified organism Lung location: unspecified part of lung Qualified Code(s): J18.9 - Pneumonia, unspecified organism (3) Hypoxia Code(s): R09.02 - HYPOXEMIA (4) SOB (shortness of breath) Code(s): R06.02 - SHORTNESS OF BREATH
[2018-08-24 09:49] LABS: ANION GAP 10 MMOL/L (8-16); BLOOD UREA NITROGEN 10 mg/dl (7-18); CHLORIDE 93 mmol/L (98-107); CO2 31 mmol/L (21-32); CREATININE 0.7 mg/dl (0.55-1.3); GLUCOSE,RANDOM 56 mg/dl (74-106); POTASSIUM 3.3 mmol/L (3.5-5.1); SODIUM 134 mmol/L (136-145)
[2018-08-24] MEDS ORDERED: DOXYCYCLINE HYCLATE 100 MG CAPSULE PO SCH ×2 (10:00→18:00)
[2018-08-24] MEDS ORDERED: AZITHROMYCIN IVPB 500 MG/250 ML BAG IVPB SCH (10:00)
[2018-08-24] MEDS ORDERED: FUROSEMIDE 20 MG TABLET (FP) PO SCH (10:00)
[2018-08-24] MEDS ORDERED: CEFTRIAXONE 1 GM in DEXTROSE 5%-WATER - 50 ML IVPB SCH (10:00)
[2018-08-24] MEDS ORDERED: ASCORBIC ACID 500 MG TABLET (FP) PO SCH (10:00)
[2018-08-24] MEDS ORDERED: ASPIRIN COATED 81 MG TABLET.EC PO SCH (10:00)
--- NOTE | 2018-08-24 10:54 | CONS ---
DATE OF CONSULTATION: 08/24/2018 REFERRING PHYSICIAN: HISTORY OF PRESENT ILLNESS: The patient is a 68-year-old white male with a past medical history of hepatitis C treated, melanoma status post excision localized, history of phlebitis, nonsmoker, asbestos exposure, admitted to [facility] with shortness of breath. Patient states he was doing well until approximately Saturday prior to this admission when he started developing generalized weakness, nausea and vomiting. Nausea and vomiting lasted until and started to improve. On Saturday he started to notice increasing shortness of breath and just progressive weakness. He did not seek medical attention. On Saturday his shortness of breath became significantly worse in which he could only ambulate a few feet without getting markedly dyspneic at which time he presented to the emergency room. In the ER he was noted to have bilateral infiltrates on chest x-ray. CT scan of the chest was performed which revealed extensive bilateral alveolar interstitial ground-glass infiltrates. He was started on antibiotic therapy. He denies any fevers. He does have some chills. Denies hemoptysis. Denies any chest pains or palpitations. He denies any history of COPD or asthma in the past. He states that normally he ambulates well without any shortness of breath. He denies any recent travel and there are no recent ill contacts at home. PAST MEDICAL HISTORY: Again includes asbestos exposure, history of hepatitis C, history of substance abuse, last used approximately 15 years ago, history of localized melanoma excised on the nose with no recurrence. REVIEW OF SYSTEMS: Positive dyspnea. Positive orthopnea. Positive nonproductive cough. Had no fever, no chills, no hemoptysis. No abdominal pain. Positive recent nausea and vomiting. No lower extremity edema. CURRENT MEDICATIONS: Include: 1. Solu-Medrol. 2. Ceftriaxone. 3. Vibramycin. 4. Heparin. 5. Albuterol. 6. Lasix. 7. Ecotrin. 8. Vitamin C. PHYSICAL EXAMINATION: General: The patient is a well-developed, well-nourished male awake, alert, dyspneic and tachypneic on 50% oxygen. Vital Signs: Blood pressure is 135/63. Respiratory rate is 18. O2 saturation is 94% on 4 L. His O2 saturation is 80% on room air, and he is afebrile. HEENT: Normocephalic, atraumatic. Neck: Supple. Heart: Tachycardic, S1, S2. Chest: Bilateral crackles throughout. Abdomen: Soft. Bowel sounds are positive. Extremities: No cyanosis or edema. LABORATORIES: WBC is 7.6, hemoglobin 12.3, hematocrit 36.6 with a platelet count of 121,000; 89 polys, 7 lymphs and 2 monos. INR is 1.47. Blood gas on unknown quantity of oxygen pH 7.44, pCO2 of 48, a pO2 of 68, bicarbonate of 32 and a saturation of 92.8. Chemistries: Sodium 134, BUN 10, creatinine 0.7. BNP is 2766. Chest CT : Extensive bilateral ground-glass infiltrates. IMPRESSION: 1. Acute hypoxemic respiratory failure with extensive bilateral ground-glass alveolar infiltrates most likely secondary to infectious, rule out possible viral, rule out possible influenza; cannot exclude possible inflammatory 2. History of asbestos exposure. 3. History of melanoma. PLAN: Broad-spectrum antibiotics, iv steroids , supplemental O2,Nippv as needed for increased respiratory distress ,telemetry and monitoring, followup arterial blood gases. Obtain influenza screen. Start Tamiflu. Will also obtain echocardiogram. Follow up chest x-rays. CELI CALDERA M.D. [id number] MTDD
--- NOTE | 2018-08-24 10:55 | PN ---
Physical Exam: SUBJECTIVE: Patient seen and examined, pt reports sob improved,denies cough,cp, palpitations, fever, chills, abdominal pain, N/V/D or urinary symptoms. OBJECTIVE: Vital Signs Period Temp Pulse Resp BP Sys/Carbajal Pulse Ox Last 24 Hr 98.1 F-99.1 F 64-78 17-24 119-135/61-64 82-95 GENERAL: The patient is awake, alert, and fully oriented, in no acute distress. HEAD: Normal with no signs of trauma. EYES: PERRL, extraocular movements intact, sclera anicteric, conjunctiva clear. No ptosis. ENT: Ears normal, nares patent, oropharynx clear without exudates, moist mucous membranes. NECK: Trachea midline, full range of motion, supple. LUNGS: BS diminished, no wheezes,positive crackles, no accessory muscle use. HEART: Regular rate and rhythm, S1, S2 without murmur, rub or gallop. ABDOMEN: Soft, non-tender, nondistended, normoactive bowel sounds, no guarding, no rebound, no hepatosplenomegaly, no masses. EXTREMITIES: 2+ pulses, warm, well-perfused, no edema. NEUROLOGICAL: Cranial nerves II through XII grossly intact. Normal speech, gait not observed. PSYCH: Normal mood, normal affect. SKIN: Warm, dry, normal turgor, no rashes or lesions noted Laboratory Results - last 24 hr 08/23/18 08/23/18 08/23/18 19:10 19:10 19:10 WBC 10.8 RBC 4.20 Hgb 12.6 Hct 38.0 MCV 90.4 MCH 29.9 MCHC 33.1 RDW 11.9 Plt Count 140 MPV 7.8 Absolute Neuts (auto) 10.2 Neutrophils % No Result Required. Neutrophils % (Manual) 94.0 H* Band Neutrophils % 4.0 Lymphocytes % No Result Required. Lymphocytes % (Manual) 2.0 L Monocytes % Eosinophils % Basophils % Platelet Estimate Adequate PT with INR 16.3 H INR 1.47 H PTT (Actin FS) 26.6 Anticoagulation Therapy Puncture Site ABG pH ABG pCO2 at Pt Temp ABG pO2 at Pt Temp ABG HCO3 ABG O2 Sat (Measured) ABG O2 Content ABG Base Excess Anatoliy Test Carboxyhemoglobin Methemoglobin O2 Delivery Device Oxygen Flow Rate Vent Mode Vent Rate Mechanical Rate Pressure Support Vent Sodium Potassium Chloride Carbon Dioxide Anion Gap BUN Creatinine Creat Clearance w eGFR Random Glucose Lactic Acid Calcium Magnesium Total Bilirubin AST ALT Alkaline Phosphatase Troponin I B-Natriuretic Peptide Total Protein Albumin Urine Color Urine Appearance Urine pH Ur Specific Stuart Urine Protein Urine Glucose (UA) Urine Ketones Urine Blood Urine Nitrite Urine Bilirubin Urine Urobilinogen Ur Leukocyte Esterase Urine RBC Urine WBC 08/23/18 08/23/18 08/23/18 19:10 19:10 19:10 WBC RBC Hgb Hct MCV MCH MCHC RDW Plt Count MPV Absolute Neuts (auto) Neutrophils % Neutrophils % (Manual) Band Neutrophils % Lymphocytes % Lymphocytes % (Manual) Monocytes % Eosinophils % Basophils % Platelet Estimate PT with INR INR PTT (Actin FS) Anticoagulation Therapy No Result Required. Puncture Site No Result Required. ABG pH 7.44 ABG pCO2 at Pt Temp 48.7 H ABG pO2 at Pt Temp 68.5 L ABG HCO3 32.5 H ABG O2 Sat (Measured) 92.8 ABG O2 Content 26.3 H ABG Base Excess 6.9 H Anatoliy Test No Result Required. Carboxyhemoglobin 1.3 Methemoglobin 1.0 O2 Delivery Device No Result Required. Oxygen Flow Rate No Result Required. Vent Mode No Result Required. Vent Rate No Result Required. Mechanical Rate No Result Required. Pressure Support Vent No Result Required. Sodium 131 L Potassium 2.9 L* Chloride 93 L Carbon Dioxide 30 Anion Gap 8 BUN 12 Creatinine 0.7 Creat Clearance w eGFR > 60 Random Glucose 103 Lactic Acid Calcium 7.8 L Magnesium 1.7 L Total Bilirubin 1.1 H AST 33 ALT 27 Alkaline Phosphatase 75 Troponin I < 0.03 B-Natriuretic Peptide 2766.8 H Total Protein 6.4 Albumin 3.1 L Urine Color Urine Appearance Urine pH Ur Specific Stuart Urine Protein Urine Glucose (UA) Urine Ketones Urine Blood Urine Nitrite Urine Bilirubin Urine Urobilinogen Ur Leukocyte Esterase Urine RBC Urine WBC 08/23/18 08/23/18 08/24/18 19:10 20:00 06:30 WBC 7.6 RBC 4.02 Hgb 12.3 Hct 36.6 MCV 91.2 MCH 30.6 MCHC 33.6 RDW 12.3 Plt Count 121 L MPV 8.5 Absolute Neuts (auto) 6.8 Neutrophils % 89.1 H Neutrophils % (Manual) Band Neutrophils % Lymphocytes % 7.1 L Lymphocytes % (Manual) Monocytes % 2.8 L Eosinophils % 0.8 Basophils % 0.2 Platelet Estimate PT with INR INR PTT (Actin FS) Anticoagulation Therapy Puncture Site ABG pH ABG pCO2 at Pt Temp ABG pO2 at Pt Temp ABG HCO3 ABG O2 Sat (Measured) ABG O2 Content ABG Base Excess Anatoliy Test Carboxyhemoglobin Methemoglobin O2 Delivery Device Oxygen Flow Rate Vent Mode Vent Rate Mechanical Rate Pressure Support Vent Sodium Potassium Chloride Carbon Dioxide Anion Gap BUN Creatinine Creat Clearance w eGFR Random Glucose Lactic Acid 1.3 Calcium Magnesium Total Bilirubin AST ALT Alkaline Phosphatase Troponin I B-Natriuretic Peptide Total Protein Albumin Urine Color Yellow Urine Appearance Clear Urine pH 7.0 Ur Specific Stuart 1.010 Urine Protein Negative Urine Glucose (UA) Negative Urine Ketones Negative Urine Blood Trace-intact H Urine Nitrite Negative Urine Bilirubin Negative Urine Urobilinogen 1.0 Ur Leukocyte Esterase Negative Urine RBC 0-2 Urine WBC 0-2 08/24/18 06:30 WBC RBC Hgb Hct MCV MCH MCHC RDW Plt Count MPV Absolute Neuts (auto) Neutrophils % Neutrophils % (Manual) Band Neutrophils % Lymphocytes % Lymphocytes % (Manual) Monocytes % Eosinophils % Basophils % Platelet Estimate PT with INR INR PTT (Actin FS) Anticoagulation Therapy Puncture Site ABG pH ABG pCO2 at Pt Temp ABG pO2 at Pt Temp ABG HCO3 ABG O2 Sat (Measured) ABG O2 Content ABG Base Excess Anatoliy Test Carboxyhemoglobin Methemoglobin O2 Delivery Device Oxygen Flow Rate Vent Mode Vent Rate Mechanical Rate Pressure Support Vent Sodium 134 L Potassium 3.3 L Chloride 93 L Carbon Dioxide 31 Anion Gap 10 BUN 10 Creatinine 0.7 Creat Clearance w eGFR > 60 Random Glucose 56 L Lactic Acid Calcium 8.0 L Magnesium Total Bilirubin AST ALT Alkaline Phosphatase Troponin I B-Natriuretic Peptide Total Protein Albumin Urine Color Urine Appearance Urine pH Ur Specific Stuart Urine Protein Urine Glucose (UA) Urine Ketones Urine Blood Urine Nitrite Urine Bilirubin Urine Urobilinogen Ur Leukocyte Esterase Urine RBC Urine WBC Active Medications Generic Name Dose Route Start Last Admin Trade Name Freq PRN Reason Stop Dose Admin Albuterol Sulfate 1 amp 08/23/18 22:03 08/24/18 09:10 Ventolin 0.083% Nebulizer Soln - NEB 1 amp Q6H PRN Administration SHORT OF BREATH/WHEEZING Ascorbic Acid 500 mg 08/24/18 10:00 08/24/18 09:09 Vitamin C - PO 500 mg DAILY DESHAWN Administration Aspirin 81 mg 08/24/18 10:00 08/24/18 09:09 Ecotrin - PO 81 mg DAILY DESHAWN Administration Doxycycline Hyclate 100 mg 08/24/18 10:00 08/24/18 09:09 Vibramycin - PO 100 mg BID@1000,1800 DESHAWN Administration Furosemide 20 mg 08/24/18 10:00 08/24/18 09:09 Lasix - PO 20 mg DAILY DESHAWN Administration Heparin Sodium (Porcine) 5,000 unit 08/23/18 22:00 08/24/18 09:11 Heparin - SQ 5,000 unit BID DESHAWN Administration Ceftriaxone Sodium 1 gm/ 50 mls @ 100 mls/hr 08/24/18 10:00 08/24/18 09:10 Dextrose IVPB 100 mls/hr DAILY DESHAWN Administration Methylprednisolone Sodium Succinate 60 mg 08/24/18 09:45 Solu-Medrol - IVPUSH Q6H-IV DESHAWN Oseltamivir Phosphate 75 mg 08/24/18 11:00 Tamiflu - PO 08/29/18 10:59 BID [facility] CxR: Multifocal infiltrates, suspicious foe aspiration pneumonia CTA chest - Report pending Blood Culture - pending ASSESSMENT/PLAN: This is a 68yo M with PMH of HepC (treated), COPD, Melanoma (excised), Phlebitis , c/o shortness of breath since sat. Denied any cough or chest pain. No recent travels. No animal exposures. 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 Admitted with acute hypoxemic respiratory failure, poss due to aspiration pneumonia. *Acute hypoxemic respiratory failure, poss due to aspiration pneumonia, r/o - CTA chest pending - afebrile with no leukocytosis - lactic acid level- normal - BC pending - will r/o Influenza - pulmonary input appreciated - will cont on Abx and Solumedrol and Neb tx - ABD reviewed - will cont on O2 and monitor pulse ox closely - started on Tamiflu -pending urine legionella urine,mycoplasma ag,chlamydia ag and HIV - ID consulted - Rpt cxr amd ABG -as per pulmonary, will transfer to [facility] for further management. *COPD - started on Solumedrol - will cont on albuterol neb prn * Hx of Lower ext edema - will cont on home dose Lasix - BNP >2000, no reported hx of CHF - will get Echo *Electrolyte imbalance -NA level improved 131> 134 - K, Mg replaced - will f/u on labs *DVT ppx: Heparin SQ Visit type - Emergency Visit Emergency Visit: Yes ED Registration Date: 08/23/18 Care time: The patient presented to the Emergency Department on the above date and was hospitalized for further evaluation of their emergent condition. - New Patient This patient is new to me today: Yes Date on this admission: 08/24/18 - Critical Care Critical Care patient: No
[2018-08-24] MEDS ORDERED: OSELTAMIVIR PHOSPHATE 75 MG CAPSULE PO SCH (11:00)
[2018-08-24] MEDS ORDERED: POTASSIUM CHLORIDE TABS 20 MEQ TABLET.ER (FP) PO ONE (11:04)
[2018-08-24] MEDS ORDERED: MAGNESIUM SULF 50% (8.12 MEQ/2 ML-1 GM VIAL) IVPB ONE (11:30)
--- NOTE | 2018-08-24 11:57 | EKG ---
Test Reason : Blood Pressure : / mmHG Vent. Rate : 072 BPM Atrial Rate : 072 BPM P-R Int : 126 ms QRS Dur : 108 ms QT Int : 488 ms P-R-T Axes : 000 -17 -79 degrees QTc Int : 534 ms NORMAL SINUS RHYTHM ABNORMAL ECG WHEN COMPARED WITH ECG OF 18-SEP-2011 16:59, NONSPECIFIC T WAVE ABNORMALITY NOW EVIDENT IN LATERAL LEADS QT HAS LENGTHENED Confirmed by BATSHEVA JIMENEZ, FRIDA ([id number]) on 08/24/2018 11:57:04 AM Referred By: Confirmed By:FRIDA HERMAN MD
[2018-08-24] MEDS: methylPREDNISolone NA SUCC 40 MG/1 ML VIAL IVPUSH SCH ×3 (12:12→21:55)
[2018-08-24 15:11] LABS: ARTERIAL BLD GAS O2 SATURATION 94.4 % (90-98.9); ARTERIAL BLOOD GAS BASE EXCESS 4.8 meq/l (-2-2); ARTERIAL BLOOD GAS PCO2 45.3 mmHg (35-45); ARTERIAL BLOOD GAS PO2 75.8 mmHg (80-100); ARTERIAL BLOOD GAS pH 7.43 (7.35-7.45)
[2018-08-24 15:14] LABS: ALLENS TEST POSITIVE
--- NOTE | 2018-08-24 15:14 | CON.ID ---
Consult Consult Specialty:: infectious diseases Referred by:: hospitalist Reason for Consultation:: pneumonia,sob - History of Present Illness Chief Complaint: sob History of Present Illness: 68yo M with PMH of HepC (treated), COPD, Melanoma (excised), Phlebitis, c/o shortness of breath since sat. Denied any cough or chest pain. No recent travels. No animal exposures. 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 Heterosexual, no recent infections that he can recall. Not exposed to anyone sick recently. 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 patient was worked up for pe which was negative.patient resp status was very bad and still is patient otherwise clinically looks stable - History Source History Provided By: Patient Limitations to Obtaining History: No Limitations - Alcohol/Substance Use Hx Alcohol Use: Yes - Smoking History Smoking history: Never smoked Have you smoked in the past 12 months: No Home Medications - Allergies Allergies/Adverse Reactions: Allergies Allergy/AdvReac Type Severity Reaction Status Date / Time No Known Allergies Allergy Verified 05/16/18 10:49 - Home Medications Home Medications: Ambulatory Orders RX: Furosemide [Lasix -] 20 mg PO DAILY 11/25/14 RX: Aspirin [Aspirin EC] 81 mg PO DAILY #0 12/13/14 Albuterol Sulfate Inhaler - [Ventolin Hfa Inhaler -] 1 - 2 inh PO ASDIR PRN Ascorbic Acid [Vitamin C] 500 mg PO DAILY 05/14/18 RX: Turmeric 400 mg PO DAILY 05/14/18 RX: Vitamin B Complex 1 each PO DAILY 05/14/18 RX: Vitamin E 400 unit PO DAILY 05/14/18 Review of Systems - Review of Systems Constitutional: reports: No Symptoms Eyes: reports: No Symptoms HENT: reports: No Symptoms Neck: reports: No Symptoms Cardiovascular: reports: No Symptoms Respiratory: reports: Cough, SOB, SOB on Exertion Gastrointestinal: reports: No Symptoms Genitourinary: reports: No Symptoms Musculoskeletal: reports: No Symptoms Integumentary: reports: No Symptoms Neurological: reports: No Symptoms Endocrine: reports: No Symptoms Hematology/Lymphatic: reports: No Symptoms Psychiatric: reports: No Symptoms Physical Exam Vital Signs: Vital Signs Temperature 97.4 F L 08/24/18 14:40 Pulse Rate 67 08/24/18 14:40 Respiratory Rate 20 08/24/18 14:40 Blood Pressure 137/76 08/24/18 14:40 O2 Sat by Pulse Oximetry (%) 94 L 08/24/18 08:38 Constitutional: Yes: Well Nourished, Calm, Mild Distress Eyes: Yes: Conjunctiva Clear HENT: Yes: Atraumatic, Normocephalic Neck: Yes: Supple, Trachea Midline Cardiovascular: Yes: Regular Rate and Rhythm Respiratory: Yes: Regular, Poor Air Entry (bases), Rhonchi, Wheezes Gastrointestinal: Yes: Normal Bowel Sounds, Soft Musculoskeletal: Yes: WNL Extremities: Yes: WNL Neurological: Yes: Alert, Oriented Psychiatric: Yes: Alert, Oriented Labs: CBC, BMP 08/24/18 06:30 08/24/18 06:30 Imaging - Results Chest X-ray: Report Reviewed, Image Reviewed Cat Scan: Report Reviewed, Image Reviewed Assessment/Plan Problem List - Problems (1) Acute hypoxemic respiratory failure Code(s): J96.01 - ACUTE RESPIRATORY FAILURE WITH HYPOXIA (2) Bilateral pneumonia Code(s): J18.9 - PNEUMONIA, UNSPECIFIED ORGANISM Qualifiers: Pneumonia type: due to unspecified organism Lung location: unspecified part of lung Qualified Code(s): J18.9 - Pneumonia, unspecified organism (3) Hypoxia Code(s): R09.02 - HYPOXEMIA (4) SOB (shortness of breath) Code(s): R06.02 - SHORTNESS OF BREATH 5 pneumonitis plan will start patient on abx resp support close monitoring rest as per the team
[2018-08-24] MEDS: VITAMIN B COMPLEX W/C COMBO TABLET (FP) PO SCH ×2 (15:29→17:10)
[2018-08-24] MEDS: VITAMIN E 400 INTERNATIONAL-UNITS CAPSULE (FP) PO SCH ×2 (15:29→17:10)
--- NOTE | 2018-08-24 16:58 | HOSP ---
Subjective - Review of Symptoms General: Yes: Fatigue Cardiovascular: Yes: Orthopnea Musculoskeletal: Yes: No Symptoms Neurological: Yes: Weakness Physical Examination Vital Signs: Vital Signs Temperature 97.4 F L 08/24/18 14:40 Pulse Rate 67 08/24/18 14:40 Respiratory Rate 20 08/24/18 14:40 Blood Pressure 137/76 08/24/18 14:40 O2 Sat by Pulse Oximetry (%) 97 08/24/18 15:32 Respiratory: Yes: Accessory Muscle Use, Rales (crackles on right base) Gastrointestinal: Yes: Normal Bowel Sounds Labs: CBC, BMP 08/24/18 06:30 08/24/18 06:30 Hospitalist Encounter Assessment: imaging CTA: negative for PE, bilateral pneumonia, right > left property assessment monitor: sinus taiwo 54 Patient is a 68 year old male with a significant past medical history of hep c ( treated), COPD, melanoma (excised), who presents to [facility] with c/ o shortness of breath since saturday. Denies chest pain. No recent travels. No animal exposures. 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 Admitted with acute hypoxemic respiratory failure, poss due to aspiration pneumonia. On exam he is awake alert, using venti mask 50%, 15 liters mild conversational dyspnea awake and alert lungs with evidence of congestion, right > left. aspiration? patient transfered from [place] for closer monitoring. full code
[2018-08-24] MEDS ORDERED: PT OWN MED DRAWER 7, Y5N ONE (21:56)
[2018-08-24] MEDS ORDERED: FAMOTIDINE 20 MG TABLET PO SCH (22:00)
[2018-08-25] MEDS: methylPREDNISolone NA SUCC 40 MG/1 ML VIAL IVPUSH SCH ×3 (03:21→18:11)
[2018-08-25 07:44] LABS: BASO % 0.3 % (0-2.0); HEMATOCRIT 37.9 % (35.4-49); HEMOGLOBIN 13.1 GM/dL (11.7-16.9); LYMPH % 3.6 % (8-40); MCH 30.8 pg (25.7-33.7); MCHC 34.6 g/dl (32.0-35.9); MEAN PLT VOLUME 8.1 fl (7.5-11.1); MONO % 2.4 % (3.8-10.2); NEUT % 93.7 % (42.8-82.8); PLATELET COUNT 133 K/MM3 (134-434); RBC 4.26 M/mm3 (4.00-5.60); RDW 12.9 % (11.9-15.9); WHITE BLOOD COUNT 11.3 K/mm3 (4.0-10.0)
[2018-08-25 08:03] LABS: ALBUMIN 2.7 g/dl (3.4-5.0); ALK PHOS 98 U/L (45-117); ANION GAP 8 MMOL/L (8-16); BILIRUBIN,TOTAL 0.7 mg/dL (0.2-1); BLOOD UREA NITROGEN 18 mg/dL (7-18); CALCIUM 8.2 mg/dL (8.5-10.1); CHLORIDE 97 mmol/L (98-107); CO2 28 mmol/L (21-32); CREATININE 0.6 mg/dL (0.55-1.3); GLUCOSE,RANDOM 131 mg/dL (74-106); POTASSIUM 3.7 mmol/L (3.5-5.1); SGOT/AST 36 U/L (15-37); SGPT/ALT 35 U/L (13-61); SODIUM 134 mmol/L (136-145); TOT PROT 6.7 g/dl (6.4-8.2)
[2018-08-25] MEDS ORDERED: cefTRIAXone SODIUM 1 GM VIAL ONE (09:02)
[2018-08-25] MEDS ORDERED: DEXTROSE 5%-WATER - 50 ML IVPB ONE (09:03)
[2018-08-25] MEDS: CEFTRIAXONE 1 GM in DEXTROSE 5%-WATER - 50 ML IVPB SCH (09:24)
[2018-08-25] MEDS: ASPIRIN COATED 81 MG TABLET.EC PO SCH (09:24)
[2018-08-25] MEDS: ASCORBIC ACID 500 MG TABLET (FP) PO SCH (09:24)
[2018-08-25] MEDS: FUROSEMIDE 20 MG TABLET (FP) PO SCH (09:24)
[2018-08-25] MEDS: HEPARIN NA (PORCINE) 5,000 UNITS/ML 1ML VIAL SQ SCH ×2 (09:25→21:15)
[2018-08-25] MEDS: VITAMIN E 400 INTERNATIONAL-UNITS CAPSULE (FP) PO SCH (09:26)
[2018-08-25] MEDS: VITAMIN B COMPLEX W/C COMBO TABLET (FP) PO SCH (09:26)
[2018-08-25] MEDS: AZITHROMYCIN 500 MG TABLET PO SCH (09:26)
[2018-08-25 09:28] LABS: ANISOCYTOSIS 0; MACROCYTOSIS 0; PLATELET ESTIMATE DECREASED
--- NOTE | 2018-08-25 10:20 | PN ---
Physical Exam: SUBJECTIVE: Patient seen and examined - at the bedside. states he feels that his breathing has improved. OBJECTIVE: swab for flu echo ordered monitor airway and wean off oxygen as tolerated started on protonix for gi protection while on steriods reports poor PO intake Vital Signs Period Temp Pulse Resp BP Sys/Carbajal Pulse Ox Last 24 Hr 97.4 F-98.3 F 46-67 18-20 128-154/67-77 95-97 GENERAL: The patient is awake, alert, and fully oriented, in no acute distress. HEAD: Normal with no signs of trauma. EYES: PERRL, extraocular movements intact, sclera anicteric, conjunctiva clear. No ptosis. ENT: Ears normal, nares patent, oropharynx clear without exudates, moist mucous membranes. NECK: Trachea midline, full range of motion, supple. LUNGS: BS diminished, no wheezes,positive crackles on right base, no accessory muscle use. HEART: sinus taiwo 50s on environmental monitoring specialist. ABDOMEN: Soft, non-tender, nondistended, normoactive bowel sounds, no guarding, no rebound, no hepatosplenomegaly, no masses. EXTREMITIES: 2+ pulses, warm, well-perfused, no edema. NEUROLOGICAL: Normal speech, gait not observed. PSYCH: Normal mood, normal affect. SKIN: Warm, dry, normal turgor, no rashes or lesions noted Laboratory Results - last 24 hr 08/24/18 08/24/18 08/24/18 06:30 06:30 06:30 WBC RBC Hgb Hct MCV MCH MCHC RDW Plt Count MPV Absolute Neuts (auto) Neutrophils % Neutrophils % (Manual) Band Neutrophils % Lymphocytes % Lymphocytes % (Manual) Monocytes % Monocytes % (Manual) Eosinophils % Eosinophils % (Manual) Basophils % Basophils % (Manual) Myelocytes % (Man) Promyelocytes % (Man) Blast Cells % (Manual) Nucleated RBC % Metamyelocytes Hypochromia Platelet Estimate Polychromasia Poikilocytosis Anisocytosis Microcytosis Macrocytosis ESR 82 H Puncture Site ABG pH ABG pCO2 at Pt Temp ABG pO2 at Pt Temp ABG HCO3 ABG O2 Sat (Measured) ABG O2 Content ABG Base Excess Anatoliy Test Oxygen Flow Rate Sodium Potassium Chloride Carbon Dioxide Anion Gap BUN Creatinine Creat Clearance w eGFR Random Glucose Hemoglobin A1c % 5.4 Calcium Total Bilirubin AST ALT Alkaline Phosphatase C-Reactive Protein 24.8 H Total Protein Albumin Influenza A (Rapid) Influenza B (Rapid) 08/24/18 08/24/18 08/25/18 12:20 14:52 06:28 WBC 11.3 H RBC 4.26 Hgb 13.1 Hct 37.9 MCV 89.0 MCH 30.8 MCHC 34.6 RDW 12.9 Plt Count 133 L MPV 8.1 Absolute Neuts (auto) 10.6 H Neutrophils % 93.7 H D Neutrophils % (Manual) 86.0 H Band Neutrophils % 7.0 Lymphocytes % 3.6 L D Lymphocytes % (Manual) 3.0 L Monocytes % 2.4 L Monocytes % (Manual) 4 Eosinophils % 0.0 D Eosinophils % (Manual) 0.0 Basophils % 0.3 Basophils % (Manual) 0.0 Myelocytes % (Man) 0 Promyelocytes % (Man) 0 Blast Cells % (Manual) 0 Nucleated RBC % 0 Metamyelocytes 0 Hypochromia 0 Platelet Estimate Decreased Polychromasia 0 Poikilocytosis 0 Anisocytosis 0 Microcytosis 0 Macrocytosis 0 ESR Puncture Site Left radial ABG pH 7.43 ABG pCO2 at Pt Temp 45.3 H ABG pO2 at Pt Temp 75.8 L ABG HCO3 29.4 H ABG O2 Sat (Measured) 94.4 ABG O2 Content 16.4 ABG Base Excess 4.8 H Anatoliy Test Positive Oxygen Flow Rate Yes Sodium Potassium Chloride Carbon Dioxide Anion Gap BUN Creatinine Creat Clearance w eGFR Random Glucose Hemoglobin A1c % Calcium Total Bilirubin AST ALT Alkaline Phosphatase C-Reactive Protein Total Protein Albumin Influenza A (Rapid) Negative Influenza B (Rapid) Negative 08/25/18 06:28 WBC RBC Hgb Hct MCV MCH MCHC RDW Plt Count MPV Absolute Neuts (auto) Neutrophils % Neutrophils % (Manual) Band Neutrophils % Lymphocytes % Lymphocytes % (Manual) Monocytes % Monocytes % (Manual) Eosinophils % Eosinophils % (Manual) Basophils % Basophils % (Manual) Myelocytes % (Man) Promyelocytes % (Man) Blast Cells % (Manual) Nucleated RBC % Metamyelocytes Hypochromia Platelet Estimate Polychromasia Poikilocytosis Anisocytosis Microcytosis Macrocytosis ESR Puncture Site ABG pH ABG pCO2 at Pt Temp ABG pO2 at Pt Temp ABG HCO3 ABG O2 Sat (Measured) ABG O2 Content ABG Base Excess Anatoliy Test Oxygen Flow Rate Sodium 134 L Potassium 3.7 Chloride 97 L Carbon Dioxide 28 Anion Gap 8 BUN 18 Creatinine 0.6 Creat Clearance w eGFR > 60 Random Glucose 131 H Hemoglobin A1c % Calcium 8.2 L Total Bilirubin 0.7 AST 36 ALT 35 Alkaline Phosphatase 98 C-Reactive Protein Total Protein 6.7 Albumin 2.7 L Influenza A (Rapid) Influenza B (Rapid) Active Medications Generic Name Dose Route Start Last Admin Trade Name Latonia PRN Reason Stop Dose Admin Albuterol Sulfate 1 amp 08/24/18 15:00 Ventolin 0.083% Nebulizer Soln - NEB Q6H PRN SHORT OF BREATH/WHEEZING Ascorbic Acid 500 mg 08/25/18 10:00 08/25/18 09:24 Vitamin C - PO 500 mg DAILY DESHAWN Administration Aspirin 81 mg 08/25/18 10:00 08/25/18 09:24 Ecotrin - PO 81 mg DAILY DESHAWN Administration Azithromycin 500 mg 08/25/18 10:00 08/25/18 09:26 Zithromax PO 08/27/18 10:01 500 mg DAILY DESHAWN Administration Famotidine 20 mg 08/24/18 22:00 08/24/18 22:01 Pepcid - PO Not Given BID DESHAWN Furosemide 20 mg 08/25/18 10:00 08/25/18 09:24 Lasix - PO 20 mg DAILY DESHAWN Administration Heparin Sodium (Porcine) 5,000 unit 08/24/18 22:00 08/25/18 09:25 Heparin - SQ 5,000 unit BID DESHAWN Administration Ceftriaxone Sodium 1 gm/ 50 mls @ 100 mls/hr 08/25/18 10:00 08/25/18 09:24 Dextrose IVPB 100 mls/hr DAILY DESHAWN Administration Methylprednisolone Sodium Succinate 60 mg 08/24/18 09:45 08/25/18 09:25 Solu-Medrol - IVPUSH 60 mg Q6H-IV DESHAWN Administration Multivitamins 1 each 08/24/18 16:00 08/25/18 09:26 Total B With C - PO 1 each DAILY DESHAWN Administration Vitamin E 400 unit 08/24/18 16:00 08/25/18 09:26 Vitamin E - PO 400 unit DAILY DESHAWN Administration ASSESSMENT/PLAN: Patient is a 68 year old male with a significant past medical history of Hep C which was treated, COPD, melanoma (excised), phlebitis who went to [place] [facility] for c/o shortness of breath. He was transferred to [facility] for closer monitoring of his acute hypoxemic respiratory failure. Imaging: CTA: no PE. bilateral air space disease/pneumonia right>left and boderline mediastinal lymph nodes which are non specific. slighly nodular contour of the liver. Pulm: Acute hypoxemic respiratory failure CTA negative for PE, but shows bilateral pneumonia mostly on right lung. He is on a venti mask at 50% and has shortness of breath with any physical exertion. He is afebrile with mild leukocytosis. Lactic wnl. blood cultures pending but neg to date. Influenza ordered On Solumedrol 60mg IV Supplemental oxygen Monitor airway Serial chest xrays to monitor for improvement On Ceftriaxone COPD, possible exacerbation No wheezing on exam Started on solumedrol and albuterol Card: Elevated BNP, SOB and lower ext edema Echo ordered Monitor on tele Monitor intake and output. Renal: Electrolyte imbalance Monitor serum sodium, K and mag with daily labs fen IVF not indicated, monitor labs monitor electrolyte panel low salt diet. reports poor PO intake. will ask dietary to follow and add Ensure supplements. prophy heparin full code Visit type - Emergency Visit Emergency Visit: Yes ED Registration Date: 08/23/18 Care time: The patient presented to the Emergency Department on the above date and was hospitalized for further evaluation of their emergent condition. - New Patient This patient is new to me today: No - Critical Care Critical Care patient: No - Discharge Referral Referred to [facility] No
--- NOTE | 2018-08-25 11:02 | PN ---
Progress Note, Physician History of Present Illness: PULMONARY ALERT,FEELING BETTER,LESS DYSPNEIC ON VM 50%,+ COUGH - Current Medication List Current Medications: Active Medications Albuterol Sulfate (Ventolin 0.083% Nebulizer Soln -) 1 amp NEB Q6H PRN PRN Reason: SHORT OF BREATH/WHEEZING Ascorbic Acid (Vitamin C -) 500 mg PO DAILY [facility] Last Admin: 08/25/18 09:24 Dose: 500 mg Aspirin (Ecotrin -) 81 mg PO DAILY [facility] Last Admin: 08/25/18 09:24 Dose: 81 mg Azithromycin (Zithromax) 500 mg PO DAILY [facility] Stop: 08/27/18 10:01 Last Admin: 08/25/18 09:26 Dose: 500 mg Furosemide (Lasix -) 20 mg PO DAILY [facility] Last Admin: 08/25/18 09:24 Dose: 20 mg Heparin Sodium (Porcine) (Heparin -) 5,000 unit SQ BID [facility] Last Admin: 08/25/18 09:25 Dose: 5,000 unit Ceftriaxone Sodium 1 gm/ (Dextrose) 50 mls @ 100 mls/hr IVPB DAILY [facility] Last Admin: 08/25/18 09:24 Dose: 100 mls/hr Methylprednisolone Sodium Succinate (Solu-Medrol -) 60 mg IVPUSH Q6H-IV [facility] Last Admin: 08/25/18 09:25 Dose: 60 mg Multivitamins (Total B With C -) 1 each PO DAILY [facility] Last Admin: 08/25/18 09:26 Dose: 1 each Pantoprazole Sodium (Protonix -) 40 mg PO DAILY [facility] Vitamin E (Vitamin E -) 400 unit PO DAILY [facility] Last Admin: 08/25/18 09:26 Dose: 400 unit - Objective Vital Signs: Vital Signs Temperature 97.3 F L 08/25/18 09:00 Pulse Rate 52 L 08/25/18 09:00 Respiratory Rate 18 08/25/18 09:00 Blood Pressure 155/79 08/25/18 09:00 O2 Sat by Pulse Oximetry (%) 93 L 08/25/18 09:00 Constitutional: Yes: Well Nourished, Calm Eyes: Yes: WNL HENT: Yes: WNL Neck: Yes: WNL Cardiovascular: Yes: Regular Rate and Rhythm, S1, S2 Respiratory: Yes: Rales (BILATERAL CRACKLES) Gastrointestinal: Yes: Normal Bowel Sounds, Soft Extremities: Yes: WNL Edema: No Labs: CBC, BMP 08/25/18 06:28 08/25/18 06:28 INR, PTT INR 1.47 (0.82-1.09) H 08/23/18 19:10 Problem List - Problems (1) Acute hypoxemic respiratory failure Code(s): J96.01 - ACUTE RESPIRATORY FAILURE WITH HYPOXIA (2) Bilateral pneumonia Code(s): J18.9 - PNEUMONIA, UNSPECIFIED ORGANISM Qualifiers: Pneumonia type: due to unspecified organism Lung location: unspecified part of lung Qualified Code(s): J18.9 - Pneumonia, unspecified organism (3) Hypoxia Code(s): R09.02 - HYPOXEMIA (4) SOB (shortness of breath) Code(s): R06.02 - SHORTNESS OF BREATH Assessment/Plan IMP ACUTE HYPOXEMIC RESPIRATORY FAILURE EXTENSIVE BILATERAL INFILTRATES LIKELY INFECTIOUS,? VIRAL,?INFLAMMATORY H/O ASBESTOS EXPOSURE PLAN IV ABX REDUCE STEROIDS INHALED BRONCHODILATORS SUPPLEMENTAL O2 NIPPV IF PT DEVELOPES INCREASED RESPIRATORY DISTRESS ' ECHO F/U CHEST X-RAYS F/U ABGS DR CALDERA Problem List - Problems (1) Acute hypoxemic respiratory failure Code(s): J96.01 - ACUTE RESPIRATORY FAILURE WITH HYPOXIA (2) Bilateral pneumonia Code(s): J18.9 - PNEUMONIA, UNSPECIFIED ORGANISM Qualifiers: Pneumonia type: due to unspecified organism Lung location: unspecified part of lung Qualified Code(s): J18.9 - Pneumonia, unspecified organism (3) Hypoxia Code(s): R09.02 - HYPOXEMIA (4) SOB (shortness of breath) Code(s): R06.02 - SHORTNESS OF BREATH
[2018-08-25] MEDS: PANTOPRAZOLE 40 MG TABLET (FP) PO SCH (12:22)
--- NOTE | 2018-08-25 12:26 | PN ---
Progress Note, Physician History of Present Illness: patient continues to improve on face mask says he feels better - Current Medication List Current Medications: Active Medications Albuterol Sulfate (Ventolin 0.083% Nebulizer Soln -) 1 amp NEB Q6H PRN PRN Reason: SHORT OF BREATH/WHEEZING Ascorbic Acid (Vitamin C -) 500 mg PO DAILY [facility] Last Admin: 08/25/18 09:24 Dose: 500 mg Aspirin (Ecotrin -) 81 mg PO DAILY [facility] Last Admin: 08/25/18 09:24 Dose: 81 mg Azithromycin (Zithromax) 500 mg PO DAILY [facility] Stop: 08/27/18 10:01 Last Admin: 08/25/18 09:26 Dose: 500 mg Furosemide (Lasix -) 20 mg PO DAILY [facility] Last Admin: 08/25/18 09:24 Dose: 20 mg Heparin Sodium (Porcine) (Heparin -) 5,000 unit SQ BID [facility] Last Admin: 08/25/18 09:25 Dose: 5,000 unit Ceftriaxone Sodium 1 gm/ (Dextrose) 50 mls @ 100 mls/hr IVPB DAILY [facility] Last Admin: 08/25/18 09:24 Dose: 100 mls/hr Methylprednisolone Sodium Succinate (Solu-Medrol -) 60 mg IVPUSH Q8H-IV [facility] Multivitamins (Total B With C -) 1 each PO DAILY [facility] Last Admin: 08/25/18 09:26 Dose: 1 each Pantoprazole Sodium (Protonix -) 40 mg PO DAILY [facility] Last Admin: 08/25/18 12:22 Dose: 40 mg Vitamin E (Vitamin E -) 400 unit PO DAILY [facility] Last Admin: 08/25/18 09:26 Dose: 400 unit - Objective Vital Signs: Vital Signs Temperature 97.3 F L 08/25/18 09:00 Pulse Rate 52 L 08/25/18 09:00 Respiratory Rate 18 08/25/18 09:00 Blood Pressure 155/79 08/25/18 09:00 O2 Sat by Pulse Oximetry (%) 93 L 08/25/18 09:00 Constitutional: Yes: No Distress, Calm Cardiovascular: Yes: Regular Rate and Rhythm Respiratory: Yes: Regular, Poor Air Entry (at the bases), Other (on face mask) Gastrointestinal: Yes: Normal Bowel Sounds, Soft Musculoskeletal: Yes: WNL Extremities: Yes: WNL Neurological: Yes: Alert, Oriented Psychiatric: Yes: Alert, Oriented Labs: CBC, BMP 08/25/18 06:28 INR, PTT INR 1.47 (0.82-1.09) H 08/23/18 19:10 Assessment/Plan Problem List - Problems (1) Acute hypoxemic respiratory failure Code(s): J96.01 - ACUTE RESPIRATORY FAILURE WITH HYPOXIA (2) Bilateral pneumonia Code(s): J18.9 - PNEUMONIA, UNSPECIFIED ORGANISM Qualifiers: Pneumonia type: due to unspecified organism Lung location: unspecified part of lung Qualified Code(s): J18.9 - Pneumonia, unspecified organism (3) Hypoxia Code(s): R09.02 - HYPOXEMIA (4) SOB (shortness of breath) Code(s): R06.02 - SHORTNESS OF BREATH plan continue abx await for all results resp support pul on case rest as per the team
--- NOTE | 2018-08-25 15:34 | ECHO ---
Name: MARY WILLIAM Exam:Adult Echocardiogram Study Date: 08/25/2018 01:28 PM Age: 68 yrs Reason For Study: sob Height: 68 in Weight: 185 lb BSA: 2.0 m2 MMode/2D Measurements & Calculations IVSd: 1.1 cm Ao root diam: 3.7 cm LVIDd: 5.1 cm LA dimension: 4.0 cm LVIDs: 4.1 cm ACS: 2.1 cm LVPWd: 0.97 cm IVSs: 0.98 cm LVPWs: 1.2 cm EDV(Teich): 125.9 ml ESV(Teich): 72.1 ml Doppler Measurements & Calculations MV E max cy: 58.0 cm/sec Ao V2 max: 107.6 cm/sec MV A max cy: 57.8 cm/sec Ao max P.6 mmHg MV E/A: 1.0 MR max cy: 423.4 cm/sec TR max cy: 228.9 cm/sec MR max P.2 mmHg TR max P.0 mmHg Med Peak E' Cy: 6.8 cm/sec Med E/e': 8.5 Lat Peak E' Cy: 7.9 cm/sec Lat E/e': 7.3 Procedure A complete two-dimensional transthoracic echocardiogram was performed (2D, M-mode, Doppler and color flow Doppler). Left Ventricle The left ventricle is normal in size. Left ventricular systolic function is normal. Ejection Fraction = 60- 65%. No regional wall motion abnormalities noted. Right Ventricle The right ventricle is normal size. The right ventricular systolic function is normal. Atria The left atrial size is normal. Right atrial size is normal. Mitral Valve The mitral valve is normal in structure and function. There is moderate mitral regurgitation. Tricuspid Valve The tricuspid valve is normal in structure and function. There is mild tricuspid regurgitation. Right ventricular systolic pressure is normal. Aortic Valve There is mild aortic sclerosis.;. No aortic regurgitation is present. Pulmonic Valve The pulmonic valve is not well visualized. Great Vessels The aortic root is normal size. Pericardium/Pleura There is no pericardial effusion. Interpretation Summary The left ventricle is normal in size. Left ventricular systolic function is normal. No regional wall motion abnormalities noted. Ejection Fraction = 60-65%. The right ventricular systolic function is normal. The left atrial size is normal. Right atrial size is normal. There is moderate mitral regurgitation. There is mild tricuspid regurgitation. Right ventricular systolic pressure is normal. There is mild aortic sclerosis.; There is no pericardial effusion. Previous study is not available for comparison Jone Carlson MD 08/25/2018 03:34 PM
[2018-08-25 16:23] LABS: MYCOPLASMA PNEUMONIAE,IG G AB 241 U/mL (0-99); MYCOPLASMA PNEUMONIAE,IGM AB <770 U/mL (0-769)
[2018-08-26] MEDS: methylPREDNISolone NA SUCC 40 MG/1 ML VIAL IVPUSH SCH ×3 (01:12→17:54)
--- NOTE | 2018-08-26 07:56 | PN ---
Progress Note, Physician History of Present Illness: 24 HR EVENTS: -am CXR w/ persistent diffuse infiltrate on the right, left base is better aerated. -echo done 08/25 demonstrates EF 60-65%, no pericardial effusion, moderate MR -reports BRISENO while ambulating to bathroom, remains on VM 50% - Current Medication List Current Medications: Active Medications Albuterol Sulfate (Ventolin 0.083% Nebulizer Soln -) 1 amp NEB Q6H PRN PRN Reason: SHORT OF BREATH/WHEEZING Ascorbic Acid (Vitamin C -) 500 mg PO DAILY [facility] Last Admin: 08/25/18 09:24 Dose: 500 mg Aspirin (Ecotrin -) 81 mg PO DAILY [facility] Last Admin: 08/25/18 09:24 Dose: 81 mg Azithromycin (Zithromax) 500 mg PO DAILY [facility] Stop: 08/27/18 10:01 Last Admin: 08/25/18 09:26 Dose: 500 mg Furosemide (Lasix -) 20 mg PO DAILY [facility] Last Admin: 08/25/18 09:24 Dose: 20 mg Heparin Sodium (Porcine) (Heparin -) 5,000 unit SQ BID [facility] Last Admin: 08/25/18 21:15 Dose: 5,000 unit Ceftriaxone Sodium 1 gm/ (Dextrose) 50 mls @ 100 mls/hr IVPB DAILY [facility] Last Admin: 08/25/18 09:24 Dose: 100 mls/hr Methylprednisolone Sodium Succinate (Solu-Medrol -) 60 mg IVPUSH Q8H-IV [facility] Last Admin: 08/26/18 01:12 Dose: 60 mg Multivitamins (Total B With C -) 1 each PO DAILY [facility] Last Admin: 08/25/18 09:26 Dose: 1 each Pantoprazole Sodium (Protonix -) 40 mg PO DAILY [facility] Last Admin: 08/25/18 12:22 Dose: 40 mg Vitamin E (Vitamin E -) 400 unit PO DAILY [facility] Last Admin: 08/25/18 09:26 Dose: 400 unit - Objective Vital Signs: Vital Signs Temperature 97.6 F 08/26/18 05:49 Pulse Rate 49 L 08/26/18 05:49 Respiratory Rate 18 08/26/18 05:49 Blood Pressure 148/78 08/26/18 05:49 O2 Sat by Pulse Oximetry (%) 92 L 08/25/18 21:00 Constitutional: Yes: Calm Eyes: Yes: Conjunctiva Clear HENT: Yes: Atraumatic, Normocephalic Neck: Yes: Supple Cardiovascular: Yes: Regular Rate and Rhythm Respiratory: Yes: On Venti-Mask, Rhonchi Gastrointestinal: Yes: Normal Bowel Sounds, Soft ...Rectal Exam: Yes: Deferred Musculoskeletal: Yes: WNL Extremities: Yes: WNL Edema: No Peripheral Pulses WNL: Yes Peripheral Pulses: Left Radial: 2+, Right Radial: 2+ Integumentary: Yes: WNL Neurological: Yes: Alert, Oriented ...Motor Strength: WNL Psychiatric: Yes: Alert, Oriented Labs: CBC, BMP 08/25/18 06:28 INR, PTT INR 1.47 (0.82-1.09) H 08/23/18 19:10 - ....Imaging Chest X-ray: Report Reviewed (08/26/2018 Dx: Pneumonia A single AP view of the chest has been submitted. Since 08/23/2018 again noted is the diffuse infiltrate on the right with prominent mediastinum, unfolded aorta and elevated left hemidiaphragm. The left base is better aerated correlation recommended Reported By: Gabriel Aleman MD 08/26/18 0752) Problem List - Problems (1) Prophylactic measure Assessment/Plan: heparin SC 5000u BID [facility] 81mg daily continue Vitamin E, Vit C, MVI GI PPX with protonix Code(s): Z29.9 - ENCOUNTER FOR PROPHYLACTIC MEASURES, UNSPECIFIED (2) Bilateral pneumonia Assessment/Plan: ceftriaxone 1gm daily trend WBC and temp curve pulm and ID following, recs appreciated Azithromycin 500mg daily Code(s): J18.9 - PNEUMONIA, UNSPECIFIED ORGANISM Qualifiers: Pneumonia type: due to unspecified organism Lung location: unspecified part of lung Qualified Code(s): J18.9 - Pneumonia, unspecified organism (3) SOB (shortness of breath) Assessment/Plan: lasix 20mg daily Solu-medrol 60mg TID Code(s): R06.02 - SHORTNESS OF BREATH Impression/Plan Impression/Plan: DISPO: full code Visit type - Emergency Visit Emergency Visit: Yes ED Registration Date: 08/23/18 Care time: The patient presented to the Emergency Department on the above date and was hospitalized for further evaluation of their emergent condition. - New Patient This patient is new to me today: Yes Date on this admission: 08/26/18 - Critical Care Critical Care patient: No - Discharge Referral Referred to [facility] No
[2018-08-26] MEDS ORDERED: cefTRIAXone SODIUM 1 GM VIAL ONE (08:13)
[2018-08-26] MEDS ORDERED: DEXTROSE 5%-WATER - 50 ML IVPB ONE (08:14)
[2018-08-26] MEDS: ALBUTEROL SO4 0.083% IH SOL 2.5 MG/3 ML VIAL.NEB. NEB PRN (08:35)
[2018-08-26 08:40] LABS: ARTERIAL BLD GAS O2 SATURATION 96.8 % (95-98); ARTERIAL BLOOD GAS BASE EXCESS 3.9 meq/l (-2-2); ARTERIAL BLOOD GAS PCO2 38.7 mmHg (35-45); ARTERIAL BLOOD GAS PO2 97.1 mmHg (80-105); ARTERIAL BLOOD GAS pH 7.46 (7.35-7.45)
[2018-08-26 08:43] LABS: ALLENS TEST POSITIVE
[2018-08-26 09:29] LABS: ALBUMIN 2.7 g/dl (3.4-5.0); ALK PHOS 102 U/L (45-117); ANION GAP 6 MMOL/L (8-16); BILIRUBIN,TOTAL 0.4 mg/dL (0.2-1); BLOOD UREA NITROGEN 18 mg/dL (7-18); CALCIUM 8.1 mg/dL (8.5-10.1); CHLORIDE 97 mmol/L (98-107); CO2 32 mmol/L (21-32); CREATININE 0.7 mg/dL (0.55-1.3); GLUCOSE,RANDOM 130 mg/dL (74-106); MAGNESIUM 2.3 mg/dL (1.8-2.4); POTASSIUM 3.7 mmol/L (3.5-5.1); SGOT/AST 53 U/L (15-37); SGPT/ALT 67 U/L (13-61); SODIUM 134 mmol/L (136-145); TOT PROT 6.7 g/dl (6.4-8.2)
[2018-08-26 09:31] LABS: BASO % 0.1 % (0-2.0); HEMATOCRIT 39.8 % (35.4-49); HEMOGLOBIN 13.5 GM/dL (11.7-16.9); MCH 30.3 pg (25.7-33.7); MEAN CELL VOLUME 89.2 fl (80-96); MEAN PLT VOLUME 8.3 fl (7.5-11.1); MONO % 2.1 % (3.8-10.2); NEUT % 93.8 % (42.8-82.8); PLATELET COUNT 179 K/MM3 (134-434); RBC 4.46 M/mm3 (4.00-5.60); RDW 12.9 % (11.9-15.9); WHITE BLOOD COUNT 15.2 K/mm3 (4.0-10.0)
[2018-08-26] MEDS: ASCORBIC ACID 500 MG TABLET (FP) PO SCH (09:37)
[2018-08-26] MEDS: CEFTRIAXONE 1 GM in DEXTROSE 5%-WATER - 50 ML IVPB SCH (09:37)
[2018-08-26] MEDS: PANTOPRAZOLE 40 MG TABLET (FP) PO SCH (09:37)
[2018-08-26] MEDS: FUROSEMIDE 20 MG TABLET (FP) PO SCH (09:38)
[2018-08-26] MEDS: ASPIRIN COATED 81 MG TABLET.EC PO SCH (09:38)
[2018-08-26] MEDS: VITAMIN B COMPLEX W/C COMBO TABLET (FP) PO SCH (09:38)
[2018-08-26] MEDS: VITAMIN E 400 INTERNATIONAL-UNITS CAPSULE (FP) PO SCH (09:39)
[2018-08-26] MEDS: AZITHROMYCIN 500 MG TABLET PO SCH (09:40)
[2018-08-26] MEDS: HEPARIN NA (PORCINE) 5,000 UNITS/ML 1ML VIAL SQ SCH ×2 (09:40→21:17)
[2018-08-26] MEDS ORDERED: POTASSIUM CHLORIDE TABS 10 MEQ TABLET.ER (FP) PO ONE (10:03)
[2018-08-26 11:36] LABS: ANISOCYTOSIS 0; HELMET CELLS 0; HOWELL-JOLLY BODIES 0; MACROCYTOSIS 0; OVALOCYTE 0; PLATELET ESTIMATE NORMAL; ROULEAU 0; SICKELED CELLS 0; TARGET CELLS 0; TEAR DROP CELLS 0; TOXIC GRANULATION 0
--- NOTE | 2018-08-26 12:22 | PN ---
Progress Note (short form) - Note Progress Note: PULMONARY States breathing is improving. Saturating low 90s on 50% ventimask. + nonproductive cough. HIV screen negative. Vital Signs Period Temp Pulse Resp BP Sys/Carbajal Pulse Ox Last 24 Hr 97.4 F-98.2 F 46-64 16-22 143-156/76-86 92-92 Gen: mildly tachypneic with speaking Heart: RRR Lung: bibasilar rales Abd: soft, nontender Ext: no edema CBC, BMP 08/26/18 08:25 08/26/18 08:25 Active Medications Albuterol Sulfate (Ventolin 0.083% Nebulizer Soln -) 1 amp NEB Q6H PRN PRN Reason: SHORT OF BREATH/WHEEZING Last Admin: 08/26/18 08:35 Dose: 1 amp Ascorbic Acid (Vitamin C -) 500 mg PO DAILY [facility] Last Admin: 08/26/18 09:37 Dose: 500 mg Aspirin (Ecotrin -) 81 mg PO DAILY [facility] Last Admin: 08/26/18 09:38 Dose: 81 mg Azithromycin (Zithromax) 500 mg PO DAILY [facility] Stop: 08/27/18 10:01 Last Admin: 08/26/18 09:40 Dose: 500 mg Furosemide (Lasix -) 20 mg PO DAILY [facility] Last Admin: 08/26/18 09:38 Dose: 20 mg Heparin Sodium (Porcine) (Heparin -) 5,000 unit SQ BID [facility] Last Admin: 08/26/18 09:40 Dose: 5,000 unit Ceftriaxone Sodium 1 gm/ (Dextrose) 50 mls @ 100 mls/hr IVPB DAILY [facility] Last Admin: 08/26/18 09:37 Dose: 100 mls/hr Methylprednisolone Sodium Succinate (Solu-Medrol -) 60 mg IVPUSH Q8H-IV [facility] Last Admin: 08/26/18 09:36 Dose: 60 mg Multivitamins (Total B With C -) 1 each PO DAILY [facility] Last Admin: 08/26/18 09:38 Dose: 1 each Pantoprazole Sodium (Protonix -) 40 mg PO DAILY [facility] Last Admin: 08/26/18 09:37 Dose: 40 mg Vitamin E (Vitamin E -) 400 unit PO DAILY [facility] Last Admin: 08/26/18 09:39 Dose: 400 unit A/P Acute Hypoxic Respiratory Failure Pneumonia Acute Pneumonitis - continue antibiotics - f/u cultures - continue medrol at current dose - if clinically improving, will consider tapering steroids in AM - O2 to keep SpO2 >90% - inhaled bronchodilators - will need outpt f/u of chest imaging to ensure resolution of infiltrates - DVT prophylaxis
--- NOTE | 2018-08-26 15:09 | PN ---
Progress Note, Physician History of Present Illness: continue resp support still needing face mask improving - Current Medication List Current Medications: Active Medications Albuterol Sulfate (Ventolin 0.083% Nebulizer Soln -) 1 amp NEB Q6H PRN PRN Reason: SHORT OF BREATH/WHEEZING Last Admin: 08/26/18 08:35 Dose: 1 amp Ascorbic Acid (Vitamin C -) 500 mg PO DAILY [facility] Last Admin: 08/26/18 09:37 Dose: 500 mg Aspirin (Ecotrin -) 81 mg PO DAILY [facility] Last Admin: 08/26/18 09:38 Dose: 81 mg Azithromycin (Zithromax) 500 mg PO DAILY [facility] Stop: 08/27/18 10:01 Last Admin: 08/26/18 09:40 Dose: 500 mg Furosemide (Lasix -) 20 mg PO DAILY [facility] Last Admin: 08/26/18 09:38 Dose: 20 mg Heparin Sodium (Porcine) (Heparin -) 5,000 unit SQ BID [facility] Last Admin: 08/26/18 09:40 Dose: 5,000 unit Ceftriaxone Sodium 1 gm/ (Dextrose) 50 mls @ 100 mls/hr IVPB DAILY [facility] Last Admin: 08/26/18 09:37 Dose: 100 mls/hr Methylprednisolone Sodium Succinate (Solu-Medrol -) 60 mg IVPUSH Q8H-IV [facility] Last Admin: 08/26/18 09:36 Dose: 60 mg Multivitamins (Total B With C -) 1 each PO DAILY [facility] Last Admin: 08/26/18 09:38 Dose: 1 each Pantoprazole Sodium (Protonix -) 40 mg PO DAILY [facility] Last Admin: 08/26/18 09:37 Dose: 40 mg Vitamin E (Vitamin E -) 400 unit PO DAILY [facility] Last Admin: 08/26/18 09:39 Dose: 400 unit - Objective Vital Signs: Vital Signs Temperature 98 F 08/26/18 14:06 Pulse Rate 55 L 08/26/18 14:06 Respiratory Rate 18 08/26/18 14:06 Blood Pressure 135/68 08/26/18 14:06 O2 Sat by Pulse Oximetry (%) 92 L 08/26/18 09:00 Constitutional: Yes: No Distress, Calm Cardiovascular: Yes: Regular Rate and Rhythm Respiratory: Yes: Poor Air Entry, Other (on mask) Gastrointestinal: Yes: Normal Bowel Sounds, Soft Musculoskeletal: Yes: WNL Extremities: Yes: WNL Neurological: Yes: Alert, Oriented Psychiatric: Yes: Alert, Oriented Labs: CBC, BMP 08/26/18 08:25 08/26/18 08:25 INR, PTT INR 1.47 (0.82-1.09) H 08/23/18 19:10 Assessment/Plan Problem List - Problems (1) Acute hypoxemic respiratory failure Code(s): J96.01 - ACUTE RESPIRATORY FAILURE WITH HYPOXIA (2) Bilateral pneumonia Code(s): J18.9 - PNEUMONIA, UNSPECIFIED ORGANISM Qualifiers: Pneumonia type: due to unspecified organism Lung location: unspecified part of lung Qualified Code(s): J18.9 - Pneumonia, unspecified organism (3) Hypoxia Code(s): R09.02 - HYPOXEMIA (4) SOB (shortness of breath) Code(s): R06.02 - SHORTNESS OF BREATH 5 pneumonitis plan continue abx watch how the patient does resp support rest as per the team
[2018-08-27] MEDS: methylPREDNISolone NA SUCC 40 MG/1 ML VIAL IVPUSH SCH ×3 (05:00→17:37)
[2018-08-27 07:18] LABS: HEMATOCRIT 36.9 % (35.4-49); HEMOGLOBIN 12.9 GM/dL (11.7-16.9); MCH 31.6 pg (25.7-33.7); MCHC 35.1 g/dl (32.0-35.9); MEAN CELL VOLUME 89.9 fl (80-96); MEAN PLT VOLUME 8.4 fl (7.5-11.1); PLATELET COUNT 166 K/MM3 (134-434); RDW 12.7 % (11.9-15.9); WHITE BLOOD COUNT 10.1 K/mm3 (4.0-10.0)
[2018-08-27 07:39] LABS: ANION GAP 6 MMOL/L (8-16); BLOOD UREA NITROGEN 22 mg/dL (7-18); CALCIUM 7.9 mg/dL (8.5-10.1); CHLORIDE 101 mmol/L (98-107); CO2 28 mmol/L (21-32); CREATININE 0.6 mg/dL (0.55-1.3); GLUCOSE,RANDOM 95 mg/dL (74-106); MAGNESIUM 2.4 mg/dL (1.8-2.4); POTASSIUM 3.9 mmol/L (3.5-5.1); SODIUM 135 mmol/L (136-145)
[2018-08-27] MEDS ORDERED: cefTRIAXone SODIUM 1 GM VIAL ONE (07:42)
[2018-08-27] MEDS ORDERED: DEXTROSE 5%-WATER - 50 ML IVPB ONE (07:43)
[2018-08-27] MEDS: ALBUTEROL SO4 0.083% IH SOL 2.5 MG/3 ML VIAL.NEB. NEB PRN (07:47)
[2018-08-27] MEDS: CEFTRIAXONE 1 GM in DEXTROSE 5%-WATER - 50 ML IVPB SCH (09:39)
[2018-08-27] MEDS: HEPARIN NA (PORCINE) 5,000 UNITS/ML 1ML VIAL SQ SCH ×2 (09:41→21:41)
[2018-08-27] MEDS: VITAMIN B COMPLEX W/C COMBO TABLET (FP) PO SCH (09:42)
[2018-08-27] MEDS: VITAMIN E 400 INTERNATIONAL-UNITS CAPSULE (FP) PO SCH (09:42)
[2018-08-27] MEDS: AZITHROMYCIN 500 MG TABLET PO SCH (09:42)
[2018-08-27] MEDS: ASPIRIN COATED 81 MG TABLET.EC PO SCH (09:43)
[2018-08-27] MEDS: PANTOPRAZOLE 40 MG TABLET (FP) PO SCH (09:43)
[2018-08-27] MEDS: FUROSEMIDE 20 MG TABLET (FP) PO SCH (09:43)
[2018-08-27] MEDS: ASCORBIC ACID 500 MG TABLET (FP) PO SCH (09:43)
--- NOTE | 2018-08-27 10:37 | PN ---
Progress Note, Physician History of Present Illness: PULMONARY ALERT,FEELING BETTER,LESS DYSPNEIC,O2 SAT 96% ON 50% VM - Current Medication List Current Medications: Active Medications Albuterol Sulfate (Ventolin 0.083% Nebulizer Soln -) 1 amp NEB Q6H PRN PRN Reason: SHORT OF BREATH/WHEEZING Last Admin: 08/27/18 07:47 Dose: 1 amp Ascorbic Acid (Vitamin C -) 500 mg PO DAILY [facility] Last Admin: 08/27/18 09:43 Dose: 500 mg Aspirin (Ecotrin -) 81 mg PO DAILY [facility] Last Admin: 08/27/18 09:43 Dose: 81 mg Furosemide (Lasix -) 20 mg PO DAILY [facility] Last Admin: 08/27/18 09:43 Dose: 20 mg Heparin Sodium (Porcine) (Heparin -) 5,000 unit SQ BID [facility] Last Admin: 08/27/18 09:41 Dose: 5,000 unit Ceftriaxone Sodium 1 gm/ (Dextrose) 50 mls @ 100 mls/hr IVPB DAILY [facility] Last Admin: 08/27/18 09:39 Dose: 100 mls/hr Methylprednisolone Sodium Succinate (Solu-Medrol -) 60 mg IVPUSH Q8H-IV [facility] Last Admin: 08/27/18 09:39 Dose: 60 mg Multivitamins (Total B With C -) 1 each PO DAILY [facility] Last Admin: 08/27/18 09:42 Dose: 1 each Pantoprazole Sodium (Protonix -) 40 mg PO DAILY [facility] Last Admin: 08/27/18 09:43 Dose: 40 mg Vitamin E (Vitamin E -) 400 unit PO DAILY [facility] Last Admin: 08/27/18 09:42 Dose: 400 unit - Objective Vital Signs: Vital Signs Temperature 98.3 F 08/27/18 08:07 Pulse Rate 49 L 08/27/18 08:07 Respiratory Rate 20 08/27/18 08:09 Blood Pressure 142/74 08/27/18 08:07 O2 Sat by Pulse Oximetry (%) 92 L 08/27/18 08:09 Constitutional: Yes: Well Nourished, Calm Eyes: Yes: WNL HENT: Yes: WNL Neck: Yes: WNL Cardiovascular: Yes: Regular Rate and Rhythm, S1, S2 Respiratory: Yes: Rales (BILATERAL CRACKLES) Gastrointestinal: Yes: Normal Bowel Sounds, Soft Extremities: Yes: WNL Edema: No Labs: CBC, BMP 08/27/18 05:50 08/27/18 05:50 INR, PTT INR 1.47 (0.82-1.09) H 08/23/18 19:10 - ....Imaging Chest X-ray: Report Reviewed, Image Reviewed Problem List - Problems (1) Acute hypoxemic respiratory failure Code(s): J96.01 - ACUTE RESPIRATORY FAILURE WITH HYPOXIA (2) Bilateral pneumonia Code(s): J18.9 - PNEUMONIA, UNSPECIFIED ORGANISM Qualifiers: Pneumonia type: due to unspecified organism Lung location: unspecified part of lung Qualified Code(s): J18.9 - Pneumonia, unspecified organism (3) Hypoxia Code(s): R09.02 - HYPOXEMIA (4) SOB (shortness of breath) Code(s): R06.02 - SHORTNESS OF BREATH Assessment/Plan IMP ACUTE HYPOXEMIC RESPIRATORY FAILURE CLINICALLY IMPROING EXTENSIVE BILATERAL INFILTRATES LIKELY INFECTIOUS,? VIRAL,?INFLAMMATORY H/O ASBESTOS EXPOSURE PLAN IV ABX PER ID TAPER STEROIDS INHALED BRONCHODILATORS SUPPLEMENTAL O2 NIPPV IF PT DEVELOPES INCREASED RESPIRATORY DISTRESS F/U CHEST X-RAYS DR CALDERA Problem List - Problems (1) Acute hypoxemic respiratory failure Code(s): J96.01 - ACUTE RESPIRATORY FAILURE WITH HYPOXIA (2) Bilateral pneumonia Code(s): J18.9 - PNEUMONIA, UNSPECIFIED ORGANISM Qualifiers: Pneumonia type: due to unspecified organism Lung location: unspecified part of lung Qualified Code(s): J18.9 - Pneumonia, unspecified organism (3) Hypoxia Code(s): R09.02 - HYPOXEMIA (4) SOB (shortness of breath) Code(s): R06.02 - SHORTNESS OF BREATH
--- NOTE | 2018-08-27 12:16 | PN ---
Physical Exam: SUBJECTIVE: Patient seen and examined. He feels less SOB. He has a cough. OBJECTIVE: Vital Signs Period Temp Pulse Resp BP Sys/Carbajal Pulse Ox Last 24 Hr 97.8 F-98.3 F 48-55 18-20 133-158/68-80 92-92 GENERAL: The patient is awake, alert, and fully oriented, in no acute distress. LUNGS: Breath sounds equal, bilateral crackles, no wheezes, no accessory muscle use. HEART: Regular rate and rhythm, S1, S2 without murmur, rub or gallop. ABDOMEN: Soft, nontender, nondistended, normoactive bowel sounds, no guarding, no rebound, no hepatosplenomegaly, no masses. EXTREMITIES: 2+ pulses, warm, well-perfused, no edema. Laboratory Results - last 24 hr 08/27/18 08/27/18 05:50 05:50 WBC 10.1 H RBC 4.10 Hgb 12.9 Hct 36.9 MCV 89.9 MCH 31.6 MCHC 35.1 RDW 12.7 Plt Count 166 MPV 8.4 Sodium 135 L Potassium 3.9 Chloride 101 Carbon Dioxide 28 Anion Gap 6 L BUN 22 H Creatinine 0.6 Creat Clearance w eGFR > 60 Random Glucose 95 Calcium 7.9 L Magnesium 2.4 Active Medications Generic Name Dose Route Start Last Admin Trade Name Freq PRN Reason Stop Dose Admin Albuterol Sulfate 1 amp 08/24/18 15:00 08/27/18 07:47 Ventolin 0.083% Nebulizer Soln - NEB 1 amp Q6H PRN Administration SHORT OF BREATH/WHEEZING Ascorbic Acid 500 mg 08/25/18 10:00 08/27/18 09:43 Vitamin C - PO 500 mg DAILY [facility] Administration Aspirin 81 mg 08/25/18 10:08/27/18 09:43 Ecotrin - PO 81 mg DAILY [facility] Administration Furosemide 20 mg 08/25/18 10:00 08/27/18 09:43 Lasix - PO 20 mg DAILY [facility] Administration Heparin Sodium (Porcine) 5,000 unit 08/24/18 22:00 08/27/18 09:41 Heparin - SQ 5,000 unit BID [facility] Administration Ceftriaxone Sodium 1 gm/ 50 mls @ 100 mls/hr 08/25/18 10:00 08/27/18 09:39 Dextrose IVPB 100 mls/hr DAILY [facility] Administration Methylprednisolone Sodium Succinate 60 mg 08/25/18 18:00 08/27/18 09:39 Solu-Medrol - IVPUSH 60 mg Q8H-IV [facility] Administration Multivitamins 1 each 08/24/18 16:00 08/27/18 09:42 Total B With C - PO 1 each DAILY [facility] Administration Pantoprazole Sodium 40 mg 08/25/18 10:30 08/27/18 09:43 Protonix - PO 40 mg DAILY [facility] Administration Vitamin E 400 unit 08/24/18 16:00 08/27/18 09:42 Vitamin E - PO 400 unit DAILY [facility] Administration ASSESSMENT/PLAN: 1. Acute hypoxic respiratory failure to secondary to bilateral pneumonia - Continue SoluMedrol, ceftriaxone, albuterol nebs as needed - Oxygen to keep saturation >90% - BiPAP as needed 2. History of hepatitis C - Previously treated Visit type - Emergency Visit Emergency Visit: Yes ED Registration Date: 08/23/18 Care time: The patient presented to the Emergency Department on the above date and was hospitalized for further evaluation of their emergent condition. - New Patient This patient is new to me today: Yes Date on this admission: 08/27/18 - Critical Care Critical Care patient: No - Discharge Referral Referred to [facility] No
[2018-08-28] MEDS: methylPREDNISolone NA SUCC 40 MG/1 ML VIAL IVPUSH SCH ×3 (02:09→18:00)
[2018-08-28 07:39] LABS: BASO % 0.1 % (0-2.0); HEMATOCRIT 37.2 % (35.4-49); LYMPH % 4.1 % (8-40); MCH 31.1 pg (25.7-33.7); MEAN CELL VOLUME 88.9 fl (80-96); MEAN PLT VOLUME 8.4 fl (7.5-11.1); MONO % 3.1 % (3.8-10.2); NEUT % 92.7 % (42.8-82.8); PLATELET COUNT 163 K/MM3 (134-434); RBC 4.18 M/mm3 (4.00-5.60); RDW 12.7 % (11.9-15.9); WHITE BLOOD COUNT 10.4 K/mm3 (4.0-10.0)
[2018-08-28] MEDS ORDERED: DEXTROSE 5%-WATER - 50 ML IVPB ONE (08:10)
[2018-08-28] MEDS ORDERED: cefTRIAXone SODIUM 1 GM VIAL ONE (08:10)
[2018-08-28 08:11] LABS: ANION GAP 7 MMOL/L (8-16); BLOOD UREA NITROGEN 22 mg/dL (7-18); CALCIUM 8.1 mg/dL (8.5-10.1); CHLORIDE 101 mmol/L (98-107); CO2 27 mmol/L (21-32); CREATININE 0.5 mg/dL (0.55-1.3); GLUCOSE,RANDOM 105 mg/dL (74-106); POTASSIUM 4.2 mmol/L (3.5-5.1); SODIUM 135 mmol/L (136-145)
[2018-08-28] MEDS: ASPIRIN COATED 81 MG TABLET.EC PO SCH (09:15)
[2018-08-28] MEDS: CEFTRIAXONE 1 GM in DEXTROSE 5%-WATER - 50 ML IVPB SCH (09:15)
[2018-08-28] MEDS: FUROSEMIDE 20 MG TABLET (FP) PO SCH (09:15)
[2018-08-28] MEDS: HEPARIN NA (PORCINE) 5,000 UNITS/ML 1ML VIAL SQ SCH ×2 (09:16→21:46)
[2018-08-28] MEDS: PANTOPRAZOLE 40 MG TABLET (FP) PO SCH (09:16)
[2018-08-28] MEDS: ASCORBIC ACID 500 MG TABLET (FP) PO SCH (09:16)
[2018-08-28] MEDS: VITAMIN E 400 INTERNATIONAL-UNITS CAPSULE (FP) PO SCH (09:17)
[2018-08-28] MEDS: VITAMIN B COMPLEX W/C COMBO TABLET (FP) PO SCH (09:17)
[2018-08-28 11:05] LABS: ANISOCYTOSIS 0; HELMET CELLS 0; HOWELL-JOLLY BODIES 0; MACROCYTOSIS 0; OVALOCYTE 0; ROULEAU 0; SICKELED CELLS 0; TARGET CELLS 0; TEAR DROP CELLS 0; TOXIC GRANULATION 0
[2018-08-28 11:35] LABS: PLATELET ESTIMATE ADEQUATE
--- NOTE | 2018-08-28 11:55 | PN ---
Progress Note (short form) - Note Progress Note: PULMONARY States breathing is improving. Saturating mid 90s on 4L nasal cannula. + nonproductive cough. Vital Signs Period Temp Pulse Resp BP Sys/Carbajal Pulse Ox Last 24 Hr 97.6 F-98.8 F 47-56 16-20 127-185/62-80 98-98 Gen: mildly tachypneic with speaking Heart: RRR Lung: bibasilar rales Abd: soft, nontender Ext: no edema CBC, BMP 08/28/18 06:00 08/28/18 06:00 Active Medications Albuterol Sulfate (Ventolin 0.083% Nebulizer Soln -) 1 amp NEB Q6H PRN PRN Reason: SHORT OF BREATH/WHEEZING Last Admin: 08/27/18 07:47 Dose: 1 amp Ascorbic Acid (Vitamin C -) 500 mg PO DAILY [facility] Last Admin: 08/28/18 09:16 Dose: 500 mg Aspirin (Ecotrin -) 81 mg PO DAILY [facility] Last Admin: 08/28/18 09:15 Dose: 81 mg Furosemide (Lasix -) 20 mg PO DAILY [facility] Last Admin: 08/28/18 09:15 Dose: 20 mg Heparin Sodium (Porcine) (Heparin -) 5,000 unit SQ BID [facility] Last Admin: 08/28/18 09:16 Dose: 5,000 unit Ceftriaxone Sodium 1 gm/ (Dextrose) 50 mls @ 100 mls/hr IVPB DAILY [facility] Last Admin: 08/28/18 09:15 Dose: 100 mls/hr Methylprednisolone Sodium Succinate (Solu-Medrol -) 60 mg IVPUSH Q8H-IV [facility] Last Admin: 08/28/18 09:15 Dose: 60 mg Multivitamins (Total B With C -) 1 each PO DAILY [facility] Last Admin: 08/28/18 09:17 Dose: 1 each Pantoprazole Sodium (Protonix -) 40 mg PO DAILY [facility] Last Admin: 08/28/18 09:16 Dose: 40 mg Vitamin E (Vitamin E -) 400 unit PO DAILY [facility] Last Admin: 08/28/18 09:17 Dose: 400 unit A/P Acute Hypoxic Respiratory Failure Pneumonia Acute Pneumonitis - continue antibiotics - continue medrol at current dose - O2 to keep SpO2 >90% - inhaled bronchodilators - will need outpt f/u of chest imaging to ensure resolution of infiltrates - DVT prophylaxis
--- NOTE | 2018-08-28 15:40 | PN ---
Progress Note, Physician History of Present Illness: patient continues to improve today on nasal canula desats when walking - Current Medication List Current Medications: Active Medications Albuterol Sulfate (Ventolin 0.083% Nebulizer Soln -) 1 amp NEB Q6H PRN PRN Reason: SHORT OF BREATH/WHEEZING Last Admin: 08/27/18 07:47 Dose: 1 amp Ascorbic Acid (Vitamin C -) 500 mg PO DAILY [facility] Last Admin: 08/28/18 09:16 Dose: 500 mg Aspirin (Ecotrin -) 81 mg PO DAILY [facility] Last Admin: 08/28/18 09:15 Dose: 81 mg Furosemide (Lasix -) 20 mg PO DAILY [facility] Last Admin: 08/28/18 09:15 Dose: 20 mg Heparin Sodium (Porcine) (Heparin -) 5,000 unit SQ BID [facility] Last Admin: 08/28/18 09:16 Dose: 5,000 unit Ceftriaxone Sodium 1 gm/ (Dextrose) 50 mls @ 100 mls/hr IVPB DAILY [facility] Last Admin: 08/28/18 09:15 Dose: 100 mls/hr Methylprednisolone Sodium Succinate (Solu-Medrol -) 60 mg IVPUSH Q8H-IV [facility] Last Admin: 08/28/18 09:15 Dose: 60 mg Multivitamins (Total B With C -) 1 each PO DAILY [facility] Last Admin: 08/28/18 09:17 Dose: 1 each Pantoprazole Sodium (Protonix -) 40 mg PO DAILY [facility] Last Admin: 08/28/18 09:16 Dose: 40 mg Vitamin E (Vitamin E -) 400 unit PO DAILY [facility] Last Admin: 08/28/18 09:17 Dose: 400 unit - Objective Vital Signs: Vital Signs Temperature 98.2 F 08/28/18 14:00 Pulse Rate 67 08/28/18 14:00 Respiratory Rate 20 08/28/18 14:00 Blood Pressure 140/61 08/28/18 14:00 O2 Sat by Pulse Oximetry (%) 98 08/28/18 08:39 Constitutional: Yes: No Distress, Calm Cardiovascular: Yes: Regular Rate and Rhythm Respiratory: Yes: Regular, CTA Bilaterally Gastrointestinal: Yes: Normal Bowel Sounds, Soft Musculoskeletal: Yes: WNL Extremities: Yes: WNL Neurological: Yes: Alert, Oriented Psychiatric: Yes: Alert, Oriented Labs: CBC, BMP 08/28/18 06:00 08/28/18 06:00 INR, PTT INR 1.47 (0.82-1.09) H 08/23/18 19:10 Assessment/Plan Problem List - Problems (1) Acute hypoxemic respiratory failure Code(s): J96.01 - ACUTE RESPIRATORY FAILURE WITH HYPOXIA (2) Bilateral pneumonia Code(s): J18.9 - PNEUMONIA, UNSPECIFIED ORGANISM Qualifiers: Pneumonia type: due to unspecified organism Lung location: unspecified part of lung Qualified Code(s): J18.9 - Pneumonia, unspecified organism (3) Hypoxia Code(s): R09.02 - HYPOXEMIA (4) SOB (shortness of breath) Code(s): R06.02 - SHORTNESS OF BREATH 5 pneumonitis plan contiue abx resp support close monitoring rest as per the team might reimage
--- NOTE | 2018-08-28 17:30 | PN ---
Progress Note, Physician History of Present Illness: 24HR events -pt transitioned to 3L NC, O2 sat 88% at rest -pt anxious to go home - Current Medication List Current Medications: Active Medications Albuterol Sulfate (Ventolin 0.083% Nebulizer Soln -) 1 amp NEB Q6H PRN PRN Reason: SHORT OF BREATH/WHEEZING Last Admin: 08/27/18 07:47 Dose: 1 amp Ascorbic Acid (Vitamin C -) 500 mg PO DAILY [facility] Last Admin: 08/28/18 09:16 Dose: 500 mg Aspirin (Ecotrin -) 81 mg PO DAILY [facility] Last Admin: 08/28/18 09:15 Dose: 81 mg Furosemide (Lasix -) 20 mg PO DAILY [facility] Last Admin: 08/28/18 09:15 Dose: 20 mg Heparin Sodium (Porcine) (Heparin -) 5,000 unit SQ BID [facility] Last Admin: 08/28/18 09:16 Dose: 5,000 unit Ceftriaxone Sodium 1 gm/ (Dextrose) 50 mls @ 100 mls/hr IVPB DAILY [facility] Last Admin: 08/28/18 09:15 Dose: 100 mls/hr Methylprednisolone Sodium Succinate (Solu-Medrol -) 60 mg IVPUSH Q8H-IV [facility] Last Admin: 08/28/18 09:15 Dose: 60 mg Multivitamins (Total B With C -) 1 each PO DAILY [facility] Last Admin: 08/28/18 09:17 Dose: 1 each Pantoprazole Sodium (Protonix -) 40 mg PO DAILY [facility] Last Admin: 08/28/18 09:16 Dose: 40 mg Vitamin E (Vitamin E -) 400 unit PO DAILY [facility] Last Admin: 08/28/18 09:17 Dose: 400 unit - Objective Vital Signs: Vital Signs Temperature 98.2 F 08/28/18 14:00 Pulse Rate 67 08/28/18 14:00 Respiratory Rate 20 08/28/18 14:00 Blood Pressure 140/61 08/28/18 14:00 O2 Sat by Pulse Oximetry (%) 98 08/28/18 08:39 Constitutional: Yes: Well Nourished, No Distress, Calm Eyes: Yes: Conjunctiva Clear, PERRL HENT: Yes: Atraumatic, Normocephalic Neck: Yes: Supple, Trachea Midline Cardiovascular: Yes: Regular Rate and Rhythm Respiratory: Yes: Regular, Diminished (at the bases), On Venti-Mask Gastrointestinal: Yes: Normal Bowel Sounds, Soft ...Rectal Exam: Yes: Deferred Musculoskeletal: Yes: WNL Extremities: Yes: WNL Edema: No Peripheral Pulses WNL: Yes Peripheral Pulses: Left Radial: 2+, Right Radial: 2+, Left Doralis Pedis: 2+, Right Dorsalis Pedis: 2+ Integumentary: Yes: Tattoos Neurological: Yes: Alert, Oriented ...Motor Strength: WNL Psychiatric: Yes: Alert, Oriented Labs: CBC, BMP 08/28/18 06:00 08/28/18 06:00 INR, PTT INR 1.47 (0.82-1.09) H 08/23/18 19:10 Problem List - Problems (1) Prophylactic measure Assessment/Plan: heparin SC 5000u BID ASA 81mg daily continue Vitamin E, Vit C, MVI GI PPX with protonix Code(s): Z29.9 - ENCOUNTER FOR PROPHYLACTIC MEASURES, UNSPECIFIED (2) Bilateral pneumonia Assessment/Plan: ceftriaxone 1gm daily trend WBC and temp curve pulm and ID following, recs appreciated Code(s): J18.9 - PNEUMONIA, UNSPECIFIED ORGANISM Qualifiers: Pneumonia type: due to unspecified organism Lung location: unspecified part of lung Qualified Code(s): J18.9 - Pneumonia, unspecified organism (3) SOB (shortness of breath) Assessment/Plan: lasix 20mg daily Solu-medrol 60mg TID transitioned to NC Code(s): R06.02 - SHORTNESS OF BREATH Impression/Plan Impression/Plan: DISPO: full code Visit type - Emergency Visit Emergency Visit: Yes ED Registration Date: 08/23/18 Care time: The patient presented to the Emergency Department on the above date and was hospitalized for further evaluation of their emergent condition. - New Patient This patient is new to me today: No - Critical Care Critical Care patient: No - Discharge Referral Referred to [facility] Med P.C.: No
[2018-08-29] MEDS: methylPREDNISolone NA SUCC 40 MG/1 ML VIAL IVPUSH SCH ×3 (01:18→18:11)
--- NOTE | 2018-08-29 07:37 | PN ---
Progress Note (short form) - Note Progress Note: c/o dyspnea on mild exertion however overall improved. difficulty sleeping overnight. deneis Cp, fever, chills, cough, N/V/C/D Current Medications Generic Name Dose Route Start Last Admin Trade Name Freq PRN Reason Stop Dose Admin Albuterol Sulfate 1 amp 08/24/18 15:00 08/27/18 07:47 Ventolin 0.083% Nebulizer Soln - NEB 1 amp Q6H PRN Administration SHORT OF BREATH/WHEEZING Ascorbic Acid 500 mg 08/25/18 10:00 08/28/18 09:16 Vitamin C - PO 500 mg DAILY [facility] Administration Aspirin 81 mg 08/25/18 10:00 08/28/18 09:15 Ecotrin - PO 81 mg DAILY [facility] Administration Furosemide 20 mg 08/25/18 10:00 08/28/18 09:15 Lasix - PO 20 mg DAILY [facility] Administration Heparin Sodium (Porcine) 5,000 unit 08/24/18 22:00 08/28/18 21:46 Heparin - SQ 5,000 unit BID [facility] Administration Ceftriaxone Sodium 1 gm/ 50 mls @ 100 mls/hr 08/25/18 10:00 08/28/18 09:15 Dextrose IVPB 100 mls/hr DAILY [facility] Administration Methylprednisolone Sodium Succinate 60 mg 08/25/18 18:00 08/29/18 01:18 Solu-Medrol - IVPUSH 60 mg Q8H-IV [facility] Administration Multivitamins 1 each 08/24/18 16:00 08/28/18 09:17 Total B With C - PO 1 each DAILY [facility] Administration Pantoprazole Sodium 40 mg 08/25/18 10:30 08/28/18 09:16 Protonix - PO 40 mg DAILY [facility] Administration Vitamin E 400 unit 08/24/18 16:00 08/28/18 09:17 Vitamin E - PO 400 unit DAILY [facility] Administration Last Vital Signs Temp Pulse Resp BP Pulse Ox 97.4 F L 47 L 20 171/74 H 96 08/29/18 02:00 08/29/18 02:00 08/29/18 02:00 08/29/18 02:00 08/28/18 22:00 General NAD CV S1 S2 RRR no murmur/rub/gallop Lungs CTA B/L no wheezing/rales/rhonchi Abdomen soft NT/ND Extremities no pedal edema CBCD WBC 12.4 K/mm3 (4.0-10.0) H 08/29/18 06:50 RBC 4.37 M/mm3 (4.00-5.60) 08/29/18 06:50 Hgb 13.8 GM/dL (11.7-16.9) 08/29/18 06:50 Hct 39.0 % (35.4-49) 08/29/18 06:50 MCV 89.3 fl (80-96) 08/29/18 06:50 MCHC 35.4 g/dl (32.0-35.9) 08/29/18 06:50 RDW 12.8 % (11.9-15.9) 08/29/18 06:50 Plt Count 210 K/MM3 (134-434) D 08/29/18 06:50 MPV 7.9 fl (7.5-11.1) 08/29/18 06:50 CMP Sodium 135 mmol/L (136-145) L 08/28/18 06:00 Potassium 4.2 mmol/L (3.5-5.1) 08/28/18 06:00 Chloride 101 mmol/L (98-107) 08/28/18 06:00 Carbon Dioxide 27 mmol/L (21-32) 08/28/18 06:00 Anion Gap 7 MMOL/L (8-16) L 08/28/18 06:00 BUN 22 mg/dL (7-18) H 08/28/18 06:00 Creatinine 0.5 mg/dL (0.55-1.3) L 08/28/18 06:00 Creat Clearance w eGFR > 60 (>60) 08/28/18 06:00 Calcium 8.1 mg/dL (8.5-10.1) L 08/28/18 06:00 Total Bilirubin 0.4 mg/dL (0.2-1) 08/26/18 08:25 AST 53 U/L (15-37) H 08/26/18 08:25 ALT 67 U/L (13-61) H 08/26/18 08:25 Alkaline Phosphatase 102 U/L (45-117) 08/26/18 08:25 Total Protein 6.7 g/dl (6.4-8.2) 08/26/18 08:25 Albumin 2.7 g/dl (3.4-5.0) L 08/26/18 08:25 A/P 68yo M with PMH COPD and HCV presented to the ER wtih progressively worsening SOB and found to be in acute hypoxic respiratory failure due to B/L PNA and COPD exacerbation 1. ACute hypoxic respiratory failure- due to B/L PNA and COPD exacerbation. slowly improving. currently 93% on 4L NC. was on ventimask all day yesterday. will cont current dosing of steroids of medrol 60mg Q8H, Ceftriaxone day 5. completed azithromycin. cont nebs,PPI for steroids. titrate down supplemental oxygen as tolerated. agreeable to pulm rehab once medically optimized. pulm and ID on board. All Cx neg. will need f/u CT chest in 4-6weeks 2. sinus bradycardia- asymptomatic. improves with mild exertion. would likely benefit from Polysomgraphy 3. B/L LE edema- now resolved. appears euvolemic. Echo done not showing any signs of heart failure. was on lasix at home. unclear why. will hold at this time to prevent dehydration 4. leukocytosis- likely due to steroids at this time. no new infection noted. 5. HCV- treated 6. DVT ppx- hep sq 7. would benefit from pulmonary rehab once medically optimized. Visit type - Emergency Visit Emergency Visit: Yes ED Registration Date: 08/23/18 Care time: The patient presented to the Emergency Department on the above date and was hospitalized for further evaluation of their emergent condition. - New Patient This patient is new to me today: Yes Date on this admission: 08/29/18 - Critical Care Critical Care patient: No - Discharge Referral Referred to [facility] Med P.C.: No
[2018-08-29 07:41] LABS: HEMOGLOBIN 13.8 GM/dL (11.7-16.9); MCH 31.6 pg (25.7-33.7); MCHC 35.4 g/dl (32.0-35.9); MEAN CELL VOLUME 89.3 fl (80-96); MEAN PLT VOLUME 7.9 fl (7.5-11.1); PLATELET COUNT 210 K/MM3 (134-434); RBC 4.37 M/mm3 (4.00-5.60); RDW 12.8 % (11.9-15.9); WHITE BLOOD COUNT 12.4 K/mm3 (4.0-10.0)
[2018-08-29 08:08] LABS: ALBUMIN 2.6 g/dl (3.4-5.0); ALK PHOS 85 U/L (45-117); ANION GAP 7 MMOL/L (8-16); BILIRUBIN,TOTAL 0.3 mg/dL (0.2-1); BLOOD UREA NITROGEN 22 mg/dL (7-18); CALCIUM 8.2 mg/dL (8.5-10.1); CHLORIDE 101 mmol/L (98-107); CO2 27 mmol/L (21-32); CREATININE 0.7 mg/dL (0.55-1.3); GLUCOSE,RANDOM 125 mg/dL (74-106); MAGNESIUM 2.5 mg/dL (1.8-2.4); PHOSPHOROUS 3.1 mg/dL (2.5-4.9); POTASSIUM 4.7 mmol/L (3.5-5.1); SGOT/AST 17 U/L (15-37); SGPT/ALT 47 U/L (13-61); SODIUM 135 mmol/L (136-145); TOT PROT 6.2 g/dl (6.4-8.2)
[2018-08-29 09:18] LABS: ERYTHROCYTE SEDIMENTATION RATE 76 mm/hr (0-20)
[2018-08-29] MEDS ORDERED: cefTRIAXone SODIUM 1 GM VIAL ONE (10:03)
[2018-08-29] MEDS ORDERED: DEXTROSE 5%-WATER - 50 ML IVPB ONE (10:04)
[2018-08-29] MEDS ORDERED: PT OWN MED DRAWER 7, Y5N ONE (10:06)
[2018-08-29] MEDS: HEPARIN NA (PORCINE) 5,000 UNITS/ML 1ML VIAL SQ SCH ×2 (10:29→21:43)
[2018-08-29] MEDS: ASCORBIC ACID 500 MG TABLET (FP) PO SCH (10:29)
[2018-08-29] MEDS: PANTOPRAZOLE 40 MG TABLET (FP) PO SCH (10:29)
[2018-08-29] MEDS: ASPIRIN COATED 81 MG TABLET.EC PO SCH (10:29)
[2018-08-29] MEDS: CEFTRIAXONE 1 GM in DEXTROSE 5%-WATER - 50 ML IVPB SCH (10:29)
[2018-08-29] MEDS: VITAMIN E 400 INTERNATIONAL-UNITS CAPSULE (FP) PO SCH (10:30)
[2018-08-29] MEDS: VITAMIN B COMPLEX W/C COMBO TABLET (FP) PO SCH (10:30)
--- NOTE | 2018-08-29 14:14 | PN ---
Progress Note (short form) - Note Progress Note: Breathing feels a little better today. Ambulated with PT on 4 L NC O2, desaturation to 89% to 91%. Overall less SOB and dry cough. Intake & Output 08/26/18 08/27/18 08/28/18 08/29/18 23:59 23:59 23:59 23:59 Intake Total 550 1030 590 Output Total 900 1300 725 220 Balance -350 -270 -135 -220 Weight 187 lb Last Vital Signs Temp Pulse Resp BP Pulse Ox 98 F 56 L 20 139/70 94 L 08/29/18 10:00 08/29/18 10:00 08/29/18 10:00 08/29/18 10:00 08/29/18 10:00 Active Medications Albuterol Sulfate (Ventolin 0.083% Nebulizer Soln -) 1 amp NEB Q6H PRN PRN Reason: SHORT OF BREATH/WHEEZING Last Admin: 08/27/18 07:47 Dose: 1 amp Ascorbic Acid (Vitamin C -) 500 mg PO DAILY [facility] Last Admin: 08/29/18 10:29 Dose: 500 mg Aspirin (Ecotrin -) 81 mg PO DAILY [facility] Last Admin: 08/29/18 10:29 Dose: 81 mg Heparin Sodium (Porcine) (Heparin -) 5,000 unit SQ BID [facility] Last Admin: 08/29/18 10:29 Dose: 5,000 unit Ceftriaxone Sodium 1 gm/ (Dextrose) 50 mls @ 100 mls/hr IVPB DAILY [facility] Last Admin: 08/29/18 10:29 Dose: 100 mls/hr Methylprednisolone Sodium Succinate (Solu-Medrol -) 60 mg IVPUSH Q8H-IV [facility] Last Admin: 08/29/18 10:28 Dose: 60 mg Multivitamins (Total B With C -) 1 each PO DAILY [facility] Last Admin: 08/29/18 10:30 Dose: 1 each Pantoprazole Sodium (Protonix -) 40 mg PO DAILY [facility] Last Admin: 08/29/18 10:29 Dose: 40 mg Vitamin E (Vitamin E -) 400 unit PO DAILY [facility] Last Admin: 08/29/18 10:30 Dose: 400 unit Gen: mildly tachypneic with speaking Heart: RRR Lung: Diminished throughout, no wheeze, scattered rhonchi Abd: soft, nontender Ext: no edema Laboratory Results - last 24 hr 08/29/18 08/29/18 06:50 06:50 WBC 12.4 H RBC 4.37 Hgb 13.8 Hct 39.0 MCV 89.3 MCH 31.6 MCHC 35.4 RDW 12.8 Plt Count 210 D MPV 7.9 ESR 76 H Sodium 135 L Potassium 4.7 Chloride 101 Carbon Dioxide 27 Anion Gap 7 L BUN 22 H Creatinine 0.7 Creat Clearance w eGFR 112.83 Random Glucose 125 H Calcium 8.2 L Phosphorus 3.1 Magnesium 2.5 H Total Bilirubin 0.3 AST 17 ALT 47 Alkaline Phosphatase 85 Total Protein 6.2 L Albumin 2.6 L A/P Acute Hypoxic Respiratory Failure Pneumonia Acute Pneumonitis - ABX - Can likely change Medrol to Prednsione in the next few days - O2 to keep SpO2 88% To 92% - inhaled bronchodilators - will need outpatient f/u of chest imaging to ensure resolution of infiltrates in about 6 weeks - DVT prophylaxis Dr Tang
--- NOTE | 2018-08-29 14:42 | PN ---
Progress Note, Physician History of Present Illness: maintaining sats at rest with nasal canula no complaints - Current Medication List Current Medications: Active Medications Albuterol Sulfate (Ventolin 0.083% Nebulizer Soln -) 1 amp NEB Q6H PRN PRN Reason: SHORT OF BREATH/WHEEZING Last Admin: 08/27/18 07:47 Dose: 1 amp Ascorbic Acid (Vitamin C -) 500 mg PO DAILY [facility] Last Admin: 08/29/18 10:29 Dose: 500 mg Aspirin (Ecotrin -) 81 mg PO DAILY [facility] Last Admin: 08/29/18 10:29 Dose: 81 mg Heparin Sodium (Porcine) (Heparin -) 5,000 unit SQ BID [facility] Last Admin: 08/29/18 10:29 Dose: 5,000 unit Ceftriaxone Sodium 1 gm/ (Dextrose) 50 mls @ 100 mls/hr IVPB DAILY [facility] Last Admin: 08/29/18 10:29 Dose: 100 mls/hr Methylprednisolone Sodium Succinate (Solu-Medrol -) 60 mg IVPUSH Q8H-IV [facility] Last Admin: 08/29/18 10:28 Dose: 60 mg Multivitamins (Total B With C -) 1 each PO DAILY [facility] Last Admin: 08/29/18 10:30 Dose: 1 each Pantoprazole Sodium (Protonix -) 40 mg PO DAILY [facility] Last Admin: 08/29/18 10:29 Dose: 40 mg Vitamin E (Vitamin E -) 400 unit PO DAILY [facility] Last Admin: 08/29/18 10:30 Dose: 400 unit - Objective Vital Signs: Vital Signs Temperature 98 F 08/29/18 10:00 Pulse Rate 56 L 08/29/18 10:00 Respiratory Rate 20 08/29/18 10:00 Blood Pressure 139/70 08/29/18 10:00 O2 Sat by Pulse Oximetry (%) 94 L 08/29/18 10:00 Constitutional: Yes: No Distress, Calm Cardiovascular: Yes: Regular Rate and Rhythm Respiratory: Yes: Regular, CTA Bilaterally Gastrointestinal: Yes: Normal Bowel Sounds, Soft Musculoskeletal: Yes: WNL Extremities: Yes: WNL Neurological: Yes: Alert, Oriented Psychiatric: Yes: Alert, Oriented Labs: CBC, BMP 08/29/18 06:50 08/29/18 06:50 INR, PTT INR 1.47 (0.82-1.09) H 08/23/18 19:10 Assessment/Plan Problem List - Problems (1) Acute hypoxemic respiratory failure Code(s): J96.01 - ACUTE RESPIRATORY FAILURE WITH HYPOXIA (2) Bilateral pneumonia Code(s): J18.9 - PNEUMONIA, UNSPECIFIED ORGANISM Qualifiers: Pneumonia type: due to unspecified organism Lung location: unspecified part of lung Qualified Code(s): J18.9 - Pneumonia, unspecified organism (3) Hypoxia Code(s): R09.02 - HYPOXEMIA (4) SOB (shortness of breath) Code(s): R06.02 - SHORTNESS OF BREATH 5 pneumonitis plan contiue abx resp support close monitoring rest as per the team should reimage with ct scan to see improvement
[2018-08-30] MEDS: methylPREDNISolone NA SUCC 40 MG/1 ML VIAL IVPUSH SCH ×3 (02:09→17:38)
[2018-08-30] MEDS ORDERED: PT OWN MED DRAWER 7, Y5N ONE (09:53)
[2018-08-30] MEDS ORDERED: cefTRIAXone SODIUM 1 GM VIAL ONE (09:57)
[2018-08-30] MEDS ORDERED: DEXTROSE 5%-WATER - 50 ML IVPB ONE (09:58)
[2018-08-30] MEDS: ASPIRIN COATED 81 MG TABLET.EC PO SCH (11:23)
[2018-08-30] MEDS: PANTOPRAZOLE 40 MG TABLET (FP) PO SCH (11:23)
[2018-08-30] MEDS: VITAMIN E 400 INTERNATIONAL-UNITS CAPSULE (FP) PO SCH (11:23)
[2018-08-30] MEDS: ASCORBIC ACID 500 MG TABLET (FP) PO SCH (11:23)
[2018-08-30] MEDS: VITAMIN B COMPLEX W/C COMBO TABLET (FP) PO SCH (11:24)
[2018-08-30] MEDS: CEFTRIAXONE 1 GM in DEXTROSE 5%-WATER - 50 ML IVPB SCH (11:24)
[2018-08-30] MEDS: HEPARIN NA (PORCINE) 5,000 UNITS/ML 1ML VIAL SQ SCH ×2 (11:24→21:43)
--- NOTE | 2018-08-30 14:25 | PN ---
Physical Exam: SUBJECTIVE: Patient seen and examined OBJECTIVE: Vital Signs Period Temp Pulse Resp BP Sys/Carbajal Pulse Ox Last 24 Hr 97.5 F-97.8 F 51-56 20-20 142-158/77-89 95-95 GENERAL: The patient is awake, alert, and fully oriented, in no acute distress. LUNGS: Breath sounds equal, scattered rhonchi, no accessory muscle use. HEART: Regular rate and rhythm, S1, S2 without murmur, rub or gallop. ABDOMEN: Soft, nontender, nondistended, normoactive bowel sounds, no guarding, no rebound, no hepatosplenomegaly, no masses. EXTREMITIES: 2+ pulses, warm, well-perfused, no edema. Active Medications Generic Name Dose Route Start Last Admin Trade Name Freq PRN Reason Stop Dose Admin Albuterol Sulfate 1 amp 08/24/18 15:00 08/27/18 07:47 Ventolin 0.083% Nebulizer Soln - NEB 1 amp Q6H PRN Administration SHORT OF BREATH/WHEEZING Ascorbic Acid 500 mg 08/25/18 10:00 08/30/18 11:23 Vitamin C - PO 500 mg DAILY [facility] Administration Aspirin 81 mg 08/25/18 10:00 08/30/18 11:23 Ecotrin - PO 81 mg DAILY [facility] Administration Heparin Sodium (Porcine) 5,000 unit 08/24/18 22:00 08/30/18 11:24 Heparin - SQ 5,000 unit BID [facility] Administration Ceftriaxone Sodium 1 gm/ 50 mls @ 100 mls/hr 08/25/18 10:00 08/30/18 11:24 Dextrose IVPB 100 mls/hr DAILY [facility] Administration Methylprednisolone Sodium Succinate 60 mg 08/25/18 18:00 08/30/18 11:24 Solu-Medrol - IVPUSH 60 mg Q8H-IV [facility] Administration Multivitamins 1 each 08/24/18 16:00 08/30/18 11:24 Total B With C - PO 1 each DAILY [facility] Administration Pantoprazole Sodium 40 mg 08/25/18 10:30 08/30/18 11:23 Protonix - PO 40 mg DAILY [facility] Administration Vitamin E 400 unit 08/24/18 16:00 08/30/18 11:23 Vitamin E - PO 400 unit DAILY [facility] Administration ASSESSMENT/PLAN: 68yo M with PMH COPD and HCV presented to the ER wtih progressively worsening SOB and found to be in acute hypoxic respiratory failure due to B/L PNA and COPD exacerbation 1. Acute hypoxic respiratory failure to secondary to bilateral pneumonia - SoluMedrol taper - Continue ceftriaxone, albuterol nebs as needed - Oxygen to keep saturation >90% - BiPAP as needed 2. History of hepatitis C - Previously treated 3. Sinus bradycardia, asymptomatic 4. Leukocytosis, steroid-induced Visit type - Emergency Visit Emergency Visit: Yes ED Registration Date: 08/23/18 Care time: The patient presented to the Emergency Department on the above date and was hospitalized for further evaluation of their emergent condition. - New Patient This patient is new to me today: No - Critical Care Critical Care patient: No - Discharge Referral Referred to [facility] Med P.C.: No
--- NOTE | 2018-08-30 14:36 | PN ---
Progress Note (short form) - Note Progress Note: PULMONARY States breathing is slowly improving. Saturating 96% on 4L nasal cannula. + nonproductive cough. Vital Signs Period Temp Pulse Resp BP Sys/Carbajal Pulse Ox Last 24 Hr 97.5 F-97.8 F 51-56 20-20 142-158/77-89 95-95 Gen: mildly tachypneic with speaking Heart: RRR Lung: bibasilar rales Abd: soft, nontender Ext: no edema CBC, BMP 08/29/18 06:50 08/29/18 06:50 Active Medications Albuterol Sulfate (Ventolin 0.083% Nebulizer Soln -) 1 amp NEB Q6H PRN PRN Reason: SHORT OF BREATH/WHEEZING Last Admin: 08/27/18 07:47 Dose: 1 amp Ascorbic Acid (Vitamin C -) 500 mg PO DAILY [facility] Last Admin: 08/30/18 11:23 Dose: 500 mg Aspirin (Ecotrin -) 81 mg PO DAILY [facility] Last Admin: 08/30/18 11:23 Dose: 81 mg Heparin Sodium (Porcine) (Heparin -) 5,000 unit SQ BID [facility] Last Admin: 08/30/18 11:24 Dose: 5,000 unit Ceftriaxone Sodium 1 gm/ (Dextrose) 50 mls @ 100 mls/hr IVPB DAILY [facility] Last Admin: 08/30/18 11:24 Dose: 100 mls/hr Methylprednisolone Sodium Succinate (Solu-Medrol -) 60 mg IVPUSH Q8H-IV [facility] Last Admin: 08/30/18 11:24 Dose: 60 mg Multivitamins (Total B With C -) 1 each PO DAILY [facility] Last Admin: 08/30/18 11:24 Dose: 1 each Pantoprazole Sodium (Protonix -) 40 mg PO DAILY [facility] Last Admin: 08/30/18 11:23 Dose: 40 mg Vitamin E (Vitamin E -) 400 unit PO DAILY [facility] Last Admin: 08/30/18 11:23 Dose: 400 unit A/P Acute Hypoxic Respiratory Failure Pneumonia Acute Pneumonitis - continue antibiotics - will decrease medrol to 40mg q8h - O2 to keep SpO2 >90% - inhaled bronchodilators - will need outpt f/u of chest imaging to ensure resolution of infiltrates - DVT prophylaxis
[2018-08-30] MEDS: ALBUTEROL SO4 0.083% IH SOL 2.5 MG/3 ML VIAL.NEB. NEB PRN (16:14)
--- NOTE | 2018-08-30 19:21 | PN ---
Progress Note, Physician History of Present Illness: Pt seen and examined, labs/imaging results reviewed. He states that he is feeling better, less SOB and less dyspneic with exertion, on O2 NC. - Current Medication List Current Medications: Active Medications Albuterol Sulfate (Ventolin 0.083% Nebulizer Soln -) 1 amp NEB Q6H PRN PRN Reason: SHORT OF BREATH/WHEEZING Last Admin: 08/30/18 16:14 Dose: 1 amp Ascorbic Acid (Vitamin C -) 500 mg PO DAILY [facility] Last Admin: 08/30/18 11:23 Dose: 500 mg Aspirin (Ecotrin -) 81 mg PO DAILY [facility] Last Admin: 08/30/18 11:23 Dose: 81 mg Heparin Sodium (Porcine) (Heparin -) 5,000 unit SQ BID [facility] Last Admin: 08/30/18 11:24 Dose: 5,000 unit Ceftriaxone Sodium 1 gm/ (Dextrose) 50 mls @ 100 mls/hr IVPB DAILY [facility] Last Admin: 08/30/18 11:24 Dose: 100 mls/hr Methylprednisolone Sodium Succinate (Solu-Medrol -) 40 mg IVPUSH Q8H-IV [facility] Last Admin: 08/30/18 17:38 Dose: 40 mg Multivitamins (Total B With C -) 1 each PO DAILY [facility] Last Admin: 08/30/18 11:24 Dose: 1 each Pantoprazole Sodium (Protonix -) 40 mg PO DAILY [facility] Last Admin: 08/30/18 11:23 Dose: 40 mg Vitamin E (Vitamin E -) 400 unit PO DAILY [facility] Last Admin: 08/30/18 11:23 Dose: 400 unit - Objective Vital Signs: Vital Signs Temperature 97.5 F L 08/30/18 05:56 Pulse Rate 51 L 08/30/18 05:56 Respiratory Rate 20 08/30/18 09:00 Blood Pressure 158/88 08/30/18 05:56 O2 Sat by Pulse Oximetry (%) 96 08/30/18 09:00 Constitutional: Yes: No Distress, Calm Cardiovascular: Yes: Regular Rate and Rhythm Respiratory: Yes: Other (exp wheeze, Rt basilar crackles) Gastrointestinal: Yes: Normal Bowel Sounds, Soft Genitourinary: Yes: WNL Integumentary: Yes: WNL Neurological: Yes: Alert Labs: CBC, BMP 08/29/18 06:50 08/29/18 06:50 INR, PTT INR 1.47 (0.82-1.09) H 08/23/18 19:10 - ....Imaging Chest X-ray: Report Reviewed Cat Scan: Report Reviewed Problem List - Problems (1) Acute hypoxemic respiratory failure Code(s): J96.01 - ACUTE RESPIRATORY FAILURE WITH HYPOXIA (2) Bilateral pneumonia Code(s): J18.9 - PNEUMONIA, UNSPECIFIED ORGANISM Qualifiers: Pneumonia type: due to unspecified organism Lung location: unspecified part of lung Qualified Code(s): J18.9 - Pneumonia, unspecified organism (3) SOB (shortness of breath) Code(s): R06.02 - SHORTNESS OF BREATH Assessment/Plan Acute Respiratory Failure B/L PNA COPD Hep C s/p treatment -- appears to be clinically improving -- continue antibiotics, on steroids -- monitor vitals, currently afebrile/without distress
[2018-08-31] MEDS: methylPREDNISolone NA SUCC 40 MG/1 ML VIAL IVPUSH SCH ×3 (02:01→18:34)
[2018-08-31 06:53] LABS: BASO % 0.2 % (0-2.0); EOS % 0.1 % (0-4.5); HEMATOCRIT 39.7 % (35.4-49); LYMPH % 3.6 % (8-40); MCH 31.5 pg (25.7-33.7); MCHC 35.2 g/dl (32.0-35.9); MEAN CELL VOLUME 89.4 fl (80-96); MEAN PLT VOLUME 8.2 fl (7.5-11.1); MONO % 2.7 % (3.8-10.2); NEUT % 93.4 % (42.8-82.8); PLATELET COUNT 255 K/MM3 (134-434); RBC 4.44 M/mm3 (4.00-5.60); WHITE BLOOD COUNT 14.4 K/mm3 (4.0-10.0)
[2018-08-31 07:22] LABS: ANION GAP 8 MMOL/L (8-16); BLOOD UREA NITROGEN 27 mg/dL (7-18); CALCIUM 8.3 mg/dL (8.5-10.1); CHLORIDE 99 mmol/L (98-107); CO2 27 mmol/L (21-32); CREATININE 0.6 mg/dL (0.55-1.3); GLUCOSE,RANDOM 155 mg/dL (74-106); POTASSIUM 4.8 mmol/L (3.5-5.1); SODIUM 133 mmol/L (136-145)
[2018-08-31] MEDS ORDERED: PT OWN MED DRAWER 7, Y5N ONE (10:06)
[2018-08-31] MEDS ORDERED: cefTRIAXone SODIUM 1 GM VIAL ONE (10:09)
[2018-08-31] MEDS ORDERED: DEXTROSE 5%-WATER - 50 ML IVPB ONE (10:10)
[2018-08-31] MEDS: ASCORBIC ACID 500 MG TABLET (FP) PO SCH (10:45)
[2018-08-31] MEDS: PANTOPRAZOLE 40 MG TABLET (FP) PO SCH (10:45)
[2018-08-31] MEDS: ASPIRIN COATED 81 MG TABLET.EC PO SCH (10:45)
[2018-08-31] MEDS: VITAMIN B COMPLEX W/C COMBO TABLET (FP) PO SCH (10:45)
[2018-08-31] MEDS: CEFTRIAXONE 1 GM in DEXTROSE 5%-WATER - 50 ML IVPB SCH (10:46)
[2018-08-31] MEDS: HEPARIN NA (PORCINE) 5,000 UNITS/ML 1ML VIAL SQ SCH ×2 (10:47→21:47)
[2018-08-31] MEDS: VITAMIN E 400 INTERNATIONAL-UNITS CAPSULE (FP) PO SCH (10:47)
--- NOTE | 2018-08-31 11:16 | PN ---
Progress Note, Physician History of Present Illness: Pt states he is continuing to breathe better, less SOB. Using incentive spirometer, on O2 NC. Has no new complaints. - Current Medication List Current Medications: Active Medications Albuterol Sulfate (Ventolin 0.083% Nebulizer Soln -) 1 amp NEB Q6H PRN PRN Reason: SHORT OF BREATH/WHEEZING Last Admin: 08/30/18 16:14 Dose: 1 amp Ascorbic Acid (Vitamin C -) 500 mg PO DAILY [facility] Last Admin: 08/31/18 10:45 Dose: 500 mg Aspirin (Ecotrin -) 81 mg PO DAILY [facility] Last Admin: 08/31/18 10:45 Dose: 81 mg Heparin Sodium (Porcine) (Heparin -) 5,000 unit SQ BID [facility] Last Admin: 08/31/18 10:47 Dose: 5,000 unit Ceftriaxone Sodium 1 gm/ (Dextrose) 50 mls @ 100 mls/hr IVPB DAILY [facility] Last Admin: 08/31/18 10:46 Dose: 100 mls/hr Methylprednisolone Sodium Succinate (Solu-Medrol -) 40 mg IVPUSH Q8H-IV [facility] Last Admin: 08/31/18 10:46 Dose: 40 mg Multivitamins (Total B With C -) 1 each PO DAILY [facility] Last Admin: 08/31/18 10:45 Dose: 1 each Pantoprazole Sodium (Protonix -) 40 mg PO DAILY [facility] Last Admin: 08/31/18 10:45 Dose: 40 mg Vitamin E (Vitamin E -) 400 unit PO DAILY [facility] Last Admin: 08/31/18 10:47 Dose: 400 unit - Objective Vital Signs: Vital Signs Temperature 98 F 08/31/18 08:41 Pulse Rate 66 08/31/18 08:41 Respiratory Rate 20 08/31/18 08:41 Blood Pressure 130/78 08/31/18 08:41 O2 Sat by Pulse Oximetry (%) 96 08/30/18 22:00 Constitutional: Yes: No Distress, Calm Cardiovascular: Yes: Regular Rate and Rhythm Respiratory: Yes: Regular, On Nasal O2 Gastrointestinal: Yes: Normal Bowel Sounds, Soft Genitourinary: Yes: WNL Integumentary: Yes: WNL Neurological: Yes: Alert, Oriented Labs: CBC, BMP 08/31/18 05:30 08/31/18 05:30 INR, PTT INR 1.47 (0.82-1.09) H 08/23/18 19:10 Problem List - Problems (1) Acute hypoxemic respiratory failure Code(s): J96.01 - ACUTE RESPIRATORY FAILURE WITH HYPOXIA (2) Bilateral pneumonia Code(s): J18.9 - PNEUMONIA, UNSPECIFIED ORGANISM Qualifiers: Pneumonia type: due to unspecified organism Lung location: unspecified part of lung Qualified Code(s): J18.9 - Pneumonia, unspecified organism (3) SOB (shortness of breath) Code(s): R06.02 - SHORTNESS OF BREATH Assessment/Plan Acute Respiratory Failure B/L PNA COPD Hep C s/p treatment -- continue antibiotics -- wbc elevated, on steroids -- appears to be clinically improving, afebrile
[2018-08-31 11:49] LABS: ANISOCYTOSIS 3+; MACROCYTOSIS 0; OVALOCYTE 1+; PLATELET ESTIMATE NORMAL
--- NOTE | 2018-08-31 11:58 | PN ---
Progress Note (short form) - Note Progress Note: PULMONARY States breathing is slowly improving. Saturating well on 4L nasal cannula. + nonproductive cough. Vital Signs Period Temp Pulse Resp BP Sys/Carbajal Pulse Ox Last 24 Hr 97.9 F-98.2 F 61-68 18-20 112-130/64-78 96-97 Gen: mildly tachypneic with speaking Heart: RRR Lung: bibasilar rales Abd: soft, nontender Ext: no edema CBC, BMP 08/31/18 05:30 08/31/18 05:30 Active Medications Albuterol Sulfate (Ventolin 0.083% Nebulizer Soln -) 1 amp NEB Q6H PRN PRN Reason: SHORT OF BREATH/WHEEZING Last Admin: 08/30/18 16:14 Dose: 1 amp Ascorbic Acid (Vitamin C -) 500 mg PO DAILY [facility] Last Admin: 08/31/18 10:45 Dose: 500 mg Aspirin (Ecotrin -) 81 mg PO DAILY [facility] Last Admin: 08/31/18 10:45 Dose: 81 mg Heparin Sodium (Porcine) (Heparin -) 5,000 unit SQ BID [facility] Last Admin: 08/31/18 10:47 Dose: 5,000 unit Ceftriaxone Sodium 1 gm/ (Dextrose) 50 mls @ 100 mls/hr IVPB DAILY [facility] Last Admin: 08/31/18 10:46 Dose: 100 mls/hr Methylprednisolone Sodium Succinate (Solu-Medrol -) 40 mg IVPUSH Q8H-IV [facility] Last Admin: 08/31/18 10:46 Dose: 40 mg Multivitamins (Total B With C -) 1 each PO DAILY [facility] Last Admin: 08/31/18 10:45 Dose: 1 each Pantoprazole Sodium (Protonix -) 40 mg PO DAILY [facility] Last Admin: 08/31/18 10:45 Dose: 40 mg Vitamin E (Vitamin E -) 400 unit PO DAILY [facility] Last Admin: 08/31/18 10:47 Dose: 400 unit A/P Acute Hypoxic Respiratory Failure Pneumonia Acute Pneumonitis - continue antibiotics - continue medrol at current dose, can likely taper further in AM - O2 to keep SpO2 >90% - inhaled bronchodilators - will need outpt f/u of chest imaging to ensure resolution of infiltrates - DVT prophylaxis
--- NOTE | 2018-08-31 17:03 | PN ---
Physical Exam: SUBJECTIVE: Patient seen and examined. He has no complaints. OBJECTIVE: Vital Signs Period Temp Pulse Resp BP Sys/Carbajal Pulse Ox Last 24 Hr 97.9 F-98.2 F 61-76 18-20 112-139/64-87 96-97 GENERAL: The patient is awake, alert, and fully oriented, in no acute distress. LUNGS: Breath sounds equal, clear to auscultation, no accessory muscle use. HEART: Regular rate and rhythm, S1, S2 without murmur, rub or gallop. ABDOMEN: Soft, nontender, nondistended, normoactive bowel sounds, no guarding, no rebound, no hepatosplenomegaly, no masses. EXTREMITIES: 2+ pulses, warm, well-perfused, no edema. Laboratory Results - last 24 hr 08/31/18 08/31/18 05:30 05:30 WBC 14.4 H RBC 4.44 Hgb 14.0 Hct 39.7 MCV 89.4 MCH 31.5 MCHC 35.2 RDW 13.0 Plt Count 255 D MPV 8.2 Absolute Neuts (auto) 13.5 H Neutrophils % 93.4 H Neutrophils % (Manual) 89.0 H Band Neutrophils % 1.0 Lymphocytes % 3.6 L Lymphocytes % (Manual) 6.0 L Monocytes % 2.7 L Monocytes % (Manual) 1 L Eosinophils % 0.1 D Eosinophils % (Manual) 0.0 Basophils % 0.2 Basophils % (Manual) 0.0 Myelocytes % (Man) 0 Promyelocytes % (Man) 0 Blast Cells % (Manual) 0 Nucleated RBC % 0 Metamyelocytes 0 D Hypochromia 0 Platelet Estimate Normal Platelet Comment Present Polychromasia 0 Poikilocytosis 1+ Anisocytosis 3+ Microcytosis 1+ Macrocytosis 0 Ovalocytes 1+ Blake Cells 1+ Sodium 133 L Potassium 4.8 Chloride 99 Carbon Dioxide 27 Anion Gap 8 BUN 27 H Creatinine 0.6 Creat Clearance w eGFR 134.80 Random Glucose 155 H Calcium 8.3 L Active Medications Generic Name Dose Route Start Last Admin Trade Name Freq PRN Reason Stop Dose Admin Albuterol Sulfate 1 amp 08/24/18 15:00 08/30/18 16:14 Ventolin 0.083% Nebulizer Soln - NEB 1 amp Q6H PRN Administration SHORT OF BREATH/WHEEZING Ascorbic Acid 500 mg 08/25/18 10:00 08/31/18 10:45 Vitamin C - PO 500 mg DAILY [facility] Administration Aspirin 81 mg 08/25/18 10:00 08/31/18 10:45 Ecotrin - PO 81 mg DAILY [facility] Administration Heparin Sodium (Porcine) 5,000 unit 08/24/18 22:00 08/31/18 10:47 Heparin - SQ 5,000 unit BID [facility] Administration Ceftriaxone Sodium 1 gm/ 50 mls @ 100 mls/hr 08/25/18 10:00 08/31/18 10:46 Dextrose IVPB 100 mls/hr DAILY [facility] Administration Methylprednisolone Sodium Succinate 40 mg 08/30/18 18:00 08/31/18 10:46 Solu-Medrol - IVPUSH 40 mg Q8H-IV [facility] Administration Multivitamins 1 each 08/24/18 16:00 08/31/18 10:45 Total B With C - PO 1 each DAILY [facility] Administration Pantoprazole Sodium 40 mg 08/25/18 10:30 08/31/18 10:45 Protonix - PO 40 mg DAILY [facility] Administration Vitamin E 400 unit 08/24/18 16:00 08/31/18 10:47 Vitamin E - PO 400 unit DAILY [facility] Administration ASSESSMENT/PLAN: This is a 68 year old man with a history of COPD, HCV who presented to the ED with worsening SOB. 1. Acute hypoxic respiratory failure to secondary to bilateral pneumonia - Continue to taper SoluMedrol - Continue ceftriaxone, albuterol nebs as needed - Oxygen to keep saturation >90% - BiPAP as needed 2. History of hepatitis C - Previously treated 3. Sinus bradycardia, asymptomatic - Improved 4. Leukocytosis, steroid-induced Visit type - Emergency Visit Emergency Visit: Yes ED Registration Date: 08/23/18 Care time: The patient presented to the Emergency Department on the above date and was hospitalized for further evaluation of their emergent condition. - New Patient This patient is new to me today: No - Critical Care Critical Care patient: No - Discharge Referral Referred to [facility] Med [facility] No
--- NOTE | 2018-08-31 18:17 | FALL ---
Fall Exam - Event Witnessed fall: No Location of Fall: Patient Room Fall from: While ambulating (Patient reports that he was frustrated and agitated because he wasn't getting a response from ringing his call watt. He felt lightheaded while lying in bed and so he got up out of bed. He says he fell to his left, landed on the floor on his left side, and the bedside table fell on top of him. He is unsure if he hit his head. He has no complaints.) - Pre-Fall Mental Status: Alert, Oriented, Cooperative Current Medications: Current Medications Generic Name Dose Route Start Last Admin Trade Name Freq PRN Reason Stop Dose Admin Albuterol Sulfate 1 amp 08/24/18 15:00 08/30/18 16:14 Ventolin 0.083% Nebulizer Soln - NEB 1 amp Q6H PRN Administration SHORT OF BREATH/WHEEZING Ascorbic Acid 500 mg 08/25/18 10:00 08/31/18 10:45 Vitamin C - PO 500 mg DAILY [facility] Administration Aspirin 81 mg 08/25/18 10:00 08/31/18 10:45 Ecotrin - PO 81 mg DAILY [facility] Administration Heparin Sodium (Porcine) 5,000 unit 08/24/18 22:00 08/31/18 10:47 Heparin - SQ 5,000 unit BID [facility] Administration Ceftriaxone Sodium 1 gm/ 50 mls @ 100 mls/hr 08/25/18 10:00 08/31/18 10:46 Dextrose IVPB 100 mls/hr DAILY [facility] Administration Methylprednisolone Sodium Succinate 40 mg 08/30/18 18:00 08/31/18 10:46 Solu-Medrol - IVPUSH 40 mg Q8H-IV [facility] Administration Multivitamins 1 each 08/24/18 16:00 08/31/18 10:45 Total B With C - PO 1 each DAILY [facility] Administration Pantoprazole Sodium 40 mg 08/25/18 10:30 08/31/18 10:45 Protonix - PO 40 mg DAILY [facility] Administration Vitamin E 400 unit 08/24/18 16:00 08/31/18 10:47 Vitamin E - PO 400 unit DAILY [facility] Administration - Post-Fall Patient Outcome: No Injury Exam Findings: GENERAL: Lying in bed. Agitated, cooperative. HEAD: No signs of trauma. HEART: S1 S2, RRR. LUNGS: Clear. ABDOMEN: Soft, non-tender, non- distended, normal BS. EXTREMITIES: No edema. JOINTS: Normal range of motion; no swelling, ecchymoses, erythema Treatment: None Vital Signs: Vital Signs Temperature 98 F 08/31/18 15:53 Pulse Rate 76 08/31/18 15:53 Respiratory Rate 20 08/31/18 15:53 Blood Pressure 139/87 08/31/18 15:53 O2 Sat by Pulse Oximetry (%) 97 08/31/18 10:00 LOC Post-Fall: Awake, Alert, Oriented Identify factors for HIGH RISK for Head Injury: Pt on anticoagulant
[2018-08-31] MEDS ORDERED: ACETAMINOPHEN 325 MG TABLET (FP) PO PRN (18:18)
[2018-09-01] MEDS: methylPREDNISolone NA SUCC 40 MG/1 ML VIAL IVPUSH SCH ×2 (01:02→10:12)
[2018-09-01 06:34] LABS: BASO % 0.1 % (0-2.0); EOS % 0.3 % (0-4.5); HEMATOCRIT 38.8 % (35.4-49); HEMOGLOBIN 13.7 GM/dL (11.7-16.9); LYMPH % 6.2 % (8-40); MCH 31.5 pg (25.7-33.7); MCHC 35.3 g/dl (32.0-35.9); MEAN CELL VOLUME 89.3 fl (80-96); MEAN PLT VOLUME 7.5 fl (7.5-11.1); MONO % 5.6 % (3.8-10.2); NEUT % 87.8 % (42.8-82.8); PLATELET COUNT 287 K/MM3 (134-434); RBC 4.35 M/mm3 (4.00-5.60); RDW 12.9 % (11.9-15.9); WHITE BLOOD COUNT 16.5 K/mm3 (4.0-10.0)
[2018-09-01 06:59] LABS: ANION GAP 4 MMOL/L (8-16); BLOOD UREA NITROGEN 27 mg/dL (7-18); CHLORIDE 100 mmol/L (98-107); CO2 30 mmol/L (21-32); CREATININE 0.6 mg/dL (0.55-1.3); GLUCOSE,RANDOM 100 mg/dL (74-106); POTASSIUM 4.7 mmol/L (3.5-5.1); SODIUM 133 mmol/L (136-145)
[2018-09-01] MEDS ORDERED: PT OWN MED DRAWER 7, Y5N ONE (09:17)
[2018-09-01] MEDS ORDERED: cefTRIAXone SODIUM 1 GM VIAL ONE (09:19)
[2018-09-01] MEDS ORDERED: DEXTROSE 5%-WATER - 50 ML IVPB ONE (09:19)
[2018-09-01] MEDS: PANTOPRAZOLE 40 MG TABLET (FP) PO SCH (10:13)
[2018-09-01] MEDS: ASCORBIC ACID 500 MG TABLET (FP) PO SCH (10:13)
[2018-09-01] MEDS: VITAMIN B COMPLEX W/C COMBO TABLET (FP) PO SCH (10:13)
[2018-09-01] MEDS: ASPIRIN COATED 81 MG TABLET.EC PO SCH (10:13)
[2018-09-01] MEDS: VITAMIN E 400 INTERNATIONAL-UNITS CAPSULE (FP) PO SCH (10:14)
[2018-09-01] MEDS: HEPARIN NA (PORCINE) 5,000 UNITS/ML 1ML VIAL SQ SCH (10:14)
--- NOTE | 2018-09-01 10:49 | PN ---
Progress Note, Physician Chief Complaint: Feels comfortable - Current Medication List Current Medications: Active Medications Acetaminophen (Tylenol -) 650 mg PO Q6H PRN PRN Reason: HEADACHE Albuterol Sulfate (Ventolin 0.083% Nebulizer Soln -) 1 amp NEB Q6H PRN PRN Reason: SHORT OF BREATH/WHEEZING Last Admin: 08/30/18 16:14 Dose: 1 amp Ascorbic Acid (Vitamin C -) 500 mg PO DAILY [facility] Last Admin: 09/01/18 10:13 Dose: 500 mg Aspirin (Ecotrin -) 81 mg PO DAILY [facility] Last Admin: 09/01/18 10:13 Dose: 81 mg Heparin Sodium (Porcine) (Heparin -) 5,000 unit SQ BID [facility] Last Admin: 09/01/18 10:14 Dose: 5,000 unit Methylprednisolone Sodium Succinate (Solu-Medrol -) 40 mg IVPUSH Q8H-IV [facility] Last Admin: 09/01/18 10:12 Dose: 40 mg Multivitamins (Total B With C -) 1 each PO DAILY [facility] Last Admin: 09/01/18 10:13 Dose: 1 each Pantoprazole Sodium (Protonix -) 40 mg PO DAILY [facility] Last Admin: 09/01/18 10:13 Dose: 40 mg Vitamin E (Vitamin E -) 400 unit PO DAILY [facility] Last Admin: 09/01/18 10:14 Dose: 400 unit - Objective Vital Signs: Vital Signs Temperature 98 F 09/01/18 09:00 Pulse Rate 68 09/01/18 09:00 Respiratory Rate 20 09/01/18 09:00 Blood Pressure 160/86 09/01/18 09:00 O2 Sat by Pulse Oximetry (%) 96 09/01/18 06:00 GENERAL: The patient is awake, alert, and in no acute distress. HEENT: Mm moist, no anemia, PERRLA EOMI LUNGS: Rt sided LL crepts HEART: Regular rate and rhythm, S1, S2 without murmur, rub or gallop. ABDOMEN: Soft, nondistended, normoactive bowel sounds, no hepatosplenomegaly, no masses. EXTREMITIES: 2+ pulses, warm, well-perfused, trace edema of legs. 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 focal Labs: CBC, BMP 09/01/18 05:30 09/01/18 05:30 INR, PTT INR 1.47 (0.82-1.09) H 08/23/18 19:10 - ....Imaging Cat Scan: Report Reviewed (no acute changes) Problem List - Problems (1) Acute hypoxemic respiratory failure Assessment/Plan: Due to bilateral Pneumonia, improved with current mangement and IV steroids will switch to Po prednisone 40 mg daily and gradual taper, patiet has h/O COPD ex smoker Code(s): J96.01 - ACUTE RESPIRATORY FAILURE WITH HYPOXIA (2) Bilateral pneumonia Assessment/Plan: Cultures are -ve on IV Ceftrixone completed 7 days will switch to PO abx patient is afebrile, cultures are -ve Code(s): J18.9 - PNEUMONIA, UNSPECIFIED ORGANISM Qualifiers: Pneumonia type: due to unspecified organism Lung location: unspecified part of lung Qualified Code(s): J18.9 - Pneumonia, unspecified organism (3) Hepatitis C Assessment/Plan: S/P treatment 9 yrs ago Code(s): B19.20 - UNSPECIFIED VIRAL HEPATITIS C WITHOUT HEPATIC COMA (4) Syncope Assessment/Plan: Yesteday syncopised when got up from bed CT -ve non focal exam most likely orthostatic IV Hydration F/U Orthostatic vitals. Code(s): R55 - SYNCOPE AND COLLAPSE Assessment/Plan Will switch to Po Prednisone today Discuss with ID to switch to Po augmentin PT evaluation
[2018-09-01] MEDS ORDERED: CEFTRIAXONE 1 GM in DEXTROSE 5%-WATER - 50 ML IVPB ONE (10:55)
[2018-09-01] MEDS ORDERED: predniSONE 20 MG TABLET (UD) PO SCH (11:00)
--- NOTE | 2018-09-01 11:43 | DS ---
Physical Examination Vital Signs: Vital Signs Temperature 98 F 09/01/18 09:00 Pulse Rate 68 09/01/18 09:00 Respiratory Rate 20 09/01/18 09:00 Blood Pressure 160/86 09/01/18 09:00 O2 Sat by Pulse Oximetry (%) 90 L 09/01/18 10:15 GENERAL: The patient is awake, alert, and in no acute distress. HEENT: Mm moist, no anemia, PERRLA EOMI LUNGS: Rt sided LL crepts HEART: Regular rate and rhythm, S1, S2 without murmur, rub or gallop. ABDOMEN: Soft, nondistended, normoactive bowel sounds, no hepatosplenomegaly, no masses. EXTREMITIES: 2+ pulses, warm, well-perfused, trace edema of legs. 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 Denied any cough or chest pain. No recent travels. No animal exposures. 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 Ct chest shows B/L infiltrates put azithromycin ceftriaxone , switched to Po prednisone and Augmentin 5 more days. Yesterday patient had an episode of TLOC when got up from bed quickly to greet a visitor non focal neuro exam CT haed -ve educated postural training. Discussed with the Pathologist cleared to DC recommended 2 wks F/U and add Anoro Ellipta inhaler. Condition: Improved - Instructions Referrals: Jason Garcia MD [Staff Physician] - 2 Weeks Sana Hurd MD [Primary Care Provider] - 1 Week Disposition: HOME - Home Medications Comprehensive Discharge Medication List: Ambulatory Orders Furosemide [Lasix -] 20 mg PO DAILY 11/25/14 Aspirin [Aspirin EC] 81 mg PO DAILY #0 12/13/14 Albuterol Sulfate Inhaler - [Ventolin HFA Inhaler -] 1 - 2 inh PO ASDIR PRN Ascorbic Acid [Vitamin C] 500 mg PO DAILY 05/14/18 Turmeric 400 mg PO DAILY 05/14/18 Vitamin B Complex 1 each PO DAILY 05/14/18 Vitamin E 400 unit PO DAILY 05/14/18 Acetaminophen [Tylenol .Regular Strength -] 650 mg PO Q6H PRN #30 tablet Amox-Tr/K Cl [Augmentin 875-125mg Tablet -] 1 tab PO BID@0800,1730 #10 tablet Pantoprazole Sodium [Protonix -] 40 mg PO DAILY #15 tablet.ec 09/01/18 predniSONE [Deltasone -] 40 mg PO DAILY #7 tablet 09/01/18 Anoro Ellipta i Puff Daily
[2018-09-01 12:49] LABS: ANISOCYTOSIS 2+; MACROCYTOSIS 0; PLATELET ESTIMATE NORMAL
--- NOTE | 2018-09-01 13:47 | PN ---
Progress Note, Physician - Current Medication List Current Medications: Active Medications Acetaminophen (Tylenol -) 650 mg PO Q6H PRN PRN Reason: HEADACHE Albuterol Sulfate (Ventolin 0.083% Nebulizer Soln -) 1 amp NEB Q6H PRN PRN Reason: SHORT OF BREATH/WHEEZING Last Admin: 08/30/18 16:14 Dose: 1 amp Amoxicillin/Clavulanate Potassium (Augmentin - 875mg Tablet) 1 tab PO BID@0800, 1730 [facility] Ascorbic Acid (Vitamin C -) 500 mg PO DAILY [facility] Last Admin: 09/01/18 10:13 Dose: 500 mg Aspirin (Ecotrin -) 81 mg PO DAILY [facility] Last Admin: 09/01/18 10:13 Dose: 81 mg Heparin Sodium (Porcine) (Heparin -) 5,000 unit SQ BID [facility] Last Admin: 09/01/18 10:14 Dose: 5,000 unit Methylprednisolone Sodium Succinate (Solu-Medrol -) 40 mg IVPUSH Q8H-IV [facility] Last Admin: 09/01/18 10:12 Dose: 40 mg Multivitamins (Total B With C -) 1 each PO DAILY [facility] Last Admin: 09/01/18 10:13 Dose: 1 each Pantoprazole Sodium (Protonix -) 40 mg PO DAILY [facility] Last Admin: 09/01/18 10:13 Dose: 40 mg Prednisone (Deltasone -) 40 mg PO DAILY [facility] Vitamin E (Vitamin E -) 400 unit PO DAILY [facility] Last Admin: 09/01/18 10:14 Dose: 400 unit - Objective Vital Signs: Vital Signs Temperature 98 F 09/01/18 09:00 Pulse Rate 76 09/01/18 12:34 Respiratory Rate 20 09/01/18 09:00 Blood Pressure 160/86 09/01/18 09:00 O2 Sat by Pulse Oximetry (%) 92 L 09/01/18 12:34 Labs: CBC, BMP 09/01/18 05:30 09/01/18 05:30 INR, PTT INR 1.47 (0.82-1.09) H 08/23/18 19:10
--- NOTE | 2018-09-01 15:12 | PN ---
Progress Note (short form) - Note Progress Note: Breathing feels overall better. Did not qualify for home O2. Some residual dry cough. Intake & Output 08/29/18 08/30/18 08/31/18 09/01/18 23:59 23:59 23:59 23:59 Intake Total 10 10 840 500 Output Total 107 098 8417 700 Balance -710 -840 -1260 -200 Last Vital Signs Temp Pulse Resp BP Pulse Ox 97 F L 76 20 130/70 92 L 09/01/18 12:17 09/01/18 12:34 09/01/18 12:17 09/01/18 12:17 09/01/18 12:34 Active Medications Acetaminophen (Tylenol -) 650 mg PO Q6H PRN PRN Reason: HEADACHE Albuterol Sulfate (Ventolin 0.083% Nebulizer Soln -) 1 amp NEB Q6H PRN PRN Reason: SHORT OF BREATH/WHEEZING Last Admin: 08/30/18 16:14 Dose: 1 amp Amoxicillin/Clavulanate Potassium (Augmentin - 875mg Tablet) 1 tab PO BID@0800, 1730 [facility] Ascorbic Acid (Vitamin C -) 500 mg PO DAILY [facility] Last Admin: 09/01/18 10:13 Dose: 500 mg Aspirin (Ecotrin -) 81 mg PO DAILY [facility] Last Admin: 09/01/18 10:13 Dose: 81 mg Heparin Sodium (Porcine) (Heparin -) 5,000 unit SQ BID [facility] Last Admin: 09/01/18 10:14 Dose: 5,000 unit Methylprednisolone Sodium Succinate (Solu-Medrol -) 40 mg IVPUSH Q8H-IV [facility] Last Admin: 09/01/18 10:12 Dose: 40 mg Multivitamins (Total B With C -) 1 each PO DAILY [facility] Last Admin: 09/01/18 10:13 Dose: 1 each Pantoprazole Sodium (Protonix -) 40 mg PO DAILY [facility] Last Admin: 09/01/18 10:13 Dose: 40 mg Prednisone (Deltasone -) 40 mg PO DAILY [facility] Last Admin: 09/01/18 14:06 Dose: 40 mg Vitamin E (Vitamin E -) 400 unit PO DAILY [facility] Last Admin: 09/01/18 10:14 Dose: 400 unit Gen: NAD on RA Heart: RRR Lung: Diminished throughout, no wheeze, few scattered rhonchi Abd: soft, nontender Ext: no edema Laboratory Results - last 24 hr 09/01/18 09/01/18 05:30 05:30 WBC 16.5 H RBC 4.35 Hgb 13.7 Hct 38.8 MCV 89.3 MCH 31.5 MCHC 35.3 RDW 12.9 Plt Count 287 MPV 7.5 Absolute Neuts (auto) 14.5 H Neutrophils % 87.8 H Neutrophils % (Manual) 89.1 H Band Neutrophils % 0.0 Lymphocytes % 6.2 L D Lymphocytes % (Manual) 3.9 L D Monocytes % 5.6 D Monocytes % (Manual) 3 L D Eosinophils % 0.3 D Eosinophils % (Manual) 2.0 D Basophils % 0.1 Basophils % (Manual) 0.0 Myelocytes % (Man) 0 Promyelocytes % (Man) 0 Blast Cells % (Manual) 0 Nucleated RBC % 0 Metamyelocytes 0 Hypochromia 0 Platelet Estimate Normal Polychromasia 0 Poikilocytosis 1+ Anisocytosis 2+ Microcytosis 1+ Macrocytosis 0 Sodium 133 L Potassium 4.7 Chloride 100 Carbon Dioxide 30 Anion Gap 4 L BUN 27 H Creatinine 0.6 Creat Clearance w eGFR 134.80 Random Glucose 100 Calcium 8.0 L A/P Acute Hypoxic Respiratory Failure Pneumonia Acute Pneumonitis - ABX - Prednsione - will need outpatient f/u of chest imaging to ensure resolution of infiltrates in about 6 weeks - DVT prophylaxis - No smoking - Patient to follow with Dr Garcia in [address] Tang
[2018-09-01 15:42] VITALS: BP 128/70; PULSE 66; TEMP 97.8
[2018-09-01] MEDS ORDERED: AMOX TR/POT CLAV 875MG/125MG TABLETS (FP) PO SCH (17:30)
== END 2018-09-01 17:15 | disposition home or self-care (01) | DRG 193 ==
LOC: FER 17:33 → SUPCPDRO 17:33 → FM/S 20:51 → J4W 08-24 14:36
PROVIDERS: ADMIT Internal Medicine; ATTEND Internal Medicine
DX: J18.9 Pneumonia, unspecified organism (principal); J96.01 Acute respiratory failure with hypoxia; J44.1 Chronic obstructive pulmonary disease with (acute) exacerbation; D72.829 Elevated white blood cell count, unspecified; R00.1 Bradycardia, unspecified; Z77.090 Contact with and (suspected) exposure to asbestos; Z86.19 Personal history of other infectious and parasitic diseases; Z85.828 Personal history of other malignant neoplasm of skin
CPT/HCPCS: 36415; 36600; 70450-TC; 71045-TC-FY; 71046-TC-FY; 71275-TC; 80048; 80053; 81003; 81015; 82375; 82803; 83036; 83050; 83605; 83735; 83880; 84100; 84484; 85025; 85027; 85610; 85651; 85730; 86140; 86359; 86360; 86632; 86738; 87040; 87389; 87804; 87899; 93005; 93306-TC; 94010; 94640; 94761; 97116-GP; 97161-GP; 99285-25; J1644

== ENCOUNTER 2022-06-05 11:35 | Emergency (ER) | payer OTHER ==
[2022-06-05 11:44] VITALS: BP 132/68; PULSE 72; RESP 18; TEMP 97.8; BMI 23.3
== END 2022-06-05 12:12 | disposition home or self-care (01) ==
LOC: FER 11:35
DX: J20.9 Acute bronchitis, unspecified (principal)
CPT/HCPCS: 0241U-QW; 99283-25

== ENCOUNTER 2022-07-01 15:54 | Emergency (ER) | payer OTHER ==
[2022-07-01 16:05] VITALS: BP 130/84; PULSE 88; RESP 20; TEMP 99.4; BMI 23.3
[2022-07-01] MEDS ORDERED: ALBUTEROL SO4 2.5/IPRATROPIUM 0.5 INH SOL 3 ML VIAL.NEB. NEB ONE ×2 (16:54→17:23)
[2022-07-01] MEDS ORDERED: ACETAMINOPHEN 500 MG TABLET (FP) ONE (17:38)
[2022-07-01] MEDS ORDERED: ACETAMINOPHEN 325 MG TABLET (FP) PO ONE (17:38)
[2022-07-01 17:44] LABS: HEMATOCRIT 39.2 % (35.4-49); HEMOGLOBIN 13.5 G/dL (11.7-16.9); MCH 29.3 pg (25.7-33.7); MCHC 34.4 g/dl (32.0-35.9); MEAN CELL VOLUME 85.2 fl (80-96); PLATELET COUNT 180.7 10^3/uL (134-434); RDW 15.4 % (11.9-15.9); WHITE BLOOD COUNT 9.2 10^3/uL (4.0-10.8)
[2022-07-01 18:02] LABS: ALBUMIN 3.9 g/dl (3.4-5.0); CALCIUM 8.9 mg/dl (8.5-10); CREATININE 0.7 mg/dl (0.55-1.3)
[2022-07-01 18:24] LABS: PLATELET ESTIMATE ADEQUATE
== END 2022-07-01 18:41 | disposition home or self-care (01) ==
LOC: FER 15:54
PROC: 3E0F7GC Introduction of Other Therapeutic Substance into Respiratory Tract, Via Natural or Artificial Opening (ICD-10-PCS; principal; 2022-07-01)
DX: R09.81 Nasal congestion (principal); R05.3 Chronic cough
CPT/HCPCS: 0241U-QW; 36415; 71046-TC-FY; 80053; 85027; 93005; 99285-25

== ENCOUNTER 2024-08-13 11:48 | Emergency (ER) | payer OTHER ==
[2024-08-13 12:08] VITALS: PULSE 65; RESP 20; TEMP 97.2; BMI 22.9
[2024-08-13 12:54] VITALS: BP 116/64
[2024-08-13] MEDS: ZINC OXIDE 20% TOPICAL OINTMENT 30 GM TUBE TP ONE (13:18)
[2024-08-13] MEDS: HYDROCORTISONE 0.5% TOPICAL CREAM 30 GM TUBE TP ONE (13:18)
== END 2024-08-13 14:20 | disposition home or self-care (01) ==
LOC: FER 11:48
DX: L30.9 Dermatitis, unspecified (principal); R19.7 Diarrhea, unspecified; M54.50 Low back pain, unspecified
CPT/HCPCS: 99283-25